=== PATIENT | female | born 1960 | race Caucasian/White ===

== ENCOUNTER → 2016-07-07 | Outpatient (CLI) | payer OTHER ==
[~2016-07-07] MED LIST: ERGO500014 PO; FLEC50TA PO; FLUD1TA PO; HYDR20TA3 PO; [UNRECOGNIZED DRUG - CODE] INJ
--- NOTE | 2016-08-05 01:16 | ECWPNPC ---
PATIENT NAME: VITOR TORRES : 1960 GENDER: FEMALE VISIT DATE: 07/07/2016 DISCHARGE DATE: 07/07/16 1624 VISIT LOCKED DATE TIME: PHYSICIAN: AVELINA ZAMAN RESOURCE: AVELINA ZAMAN REASON FOR APPOINTMENT 1. LOW BACK HISTORY OF PRESENT ILLNESS NEW PATIENT CONSULT: WHEN DID YOUR PAIN FIRST START? . BRIEFLY DESCRIBE HOW YOUR PAIN STARTED? . HOW DOES YOUR PAIN CHANGE WITH TIME? . DOES YOUR PAIN AWAKEN YOU FROM SLEEP? . HOW MANY HOURS OF SLEEP DO YOU NORMALLY GET? . ANY DIAGNOSTIC TESTING? . FACILITY WHERE TESTS WERE DONE? ____. PAIN TREATMENT TREATMENT YES CANCER HAVE YOU EVER HAD ANY TYPE OF CANCER?NO NO. PAIN SCREENING: PATIENT HAS A COMPLAINT OF ACUTE OR CHRONIC PAIN YES FALL RISK SCREENING: SCREENING :NO FALLS IN THE PAST YEAR MUNOZ INVENTORY: QUESTIONNAIRE ASSESSEDTBD SCORE VALUE CALCULATED NO ASSESSMENT NOT COMPLETED. DENIES SUICIDAL IDEATION TODAY'S VISIT: NOTES: ONSET ON LOW BACK PAIN GREATER THAN 2 YEARS AGO. PAIN IS CENTERED IN LOW BACK AND RADIATES TO LEFT BUTTUCK AND INTO LEFT LEG TO AT LEAST THE KNEE AND SOMETIMES TO LEVEL OF THE FOOT. HAS SOME TINGLING IN LEFT FOOT. IS EXPERIENCING WEAKNESS AND CAN NOT STAND FROM FROM A SQUAT. WORSE IN AM. CAN SLEEP BUT PAIN WILL AWAKEN. NO PAIN ON RIGHT. HAS HAD SEVERAL TRIPS AND FALLS - . FELL ON [facility] IN SPRING 2015 WHICH WAS EXCRUTIATING. . CURRENT MEDICATIONS TAKING HYDROCORTISONE 20 MG TABLET 1 TABLET ORALLY TWICE A DAY TAKING FLECAINIDE ACETATE 50 MG TABLET ORALLY TAKING IBUPROFEN 800 MG TABLET 1 TABLET ORALLY THREE TIMES A DAY TAKING VITAMIN D3 2000 UNIT CAPSULE 1 CAPSULE ORALLY ONCE A DAY TAKING DICLOFENAC SODIUM 50 MG TABLET DELAYED RELEASE 1 TABLET WITH FOOD OR MILK ORALLY BID NOT-TAKING VITAMIN D3 HIGH POTENCY 1000 UNIT CAPSULE 1 CAPSULE ORALLY ONCE A DAY MEDICATION LIST REVIEWED AND RECONCILED WITH THE PATIENT PAST MEDICAL HISTORY HYPERTENSION ADDISONS DISEASE VITAMIN D DEFECIENCY COLLAPSED LUNG (LEFT) EMPHYSEMA ALLERGIES PENICILLIN (FOR ALLERGIES USE ONLY): ANAPHYLAXIS SURGICAL HISTORY LEFT OVARY REMOVED HYSTERECTOMY FAMILY HISTORY FATHER: 70 YRS MOTHER: ALIVE SIBLINGS: ALIVE SON(S): ALIVE DAUGHTER(S): ALIVE SOCIAL HISTORY GENERAL: TOBACCO USE ARE YOU A:NONSMOKER RECREATIONAL DRUG USE DRUG USE?NO CAFFEINE CAFFEINE USE?YES CUPS A DAY OCCUPATION: [employer]. DIET: REGULAR. EXERCISE: NO REGULAR EXERCISE, WALKS. MARITAL STATUS: BEEN SEPERATED FOR YEARS. LANGUAGE: BELARUSIAN. EDUCATION: HIGH SCHOOL AND SOME COLLEGE. PSYCHOLOGICAL HX TREATMENTNO PAIN CLINIC PFS, CLERGY, PUBLIC HEALTH REFERRALS CLERGY REFERRAL NEEDED?NO WAS THE PROVIDER NOTIFIED OF ANY PERTINENT INFO?NO PFS REFERRAL NEEDED?NO PUBLIC HEALTH REFERRAL NEEDED?NO PATIENT: ____. ADVANCED DIRECTIVES HEALTH CARE PROXY?NO POWER OF PREMIUM NOTE INTEREST CALCULATOR CLERK?NO HOSPITALIZATION/MAJOR DIAGNOSTIC PROCEDURE NO HOSPITALIZATION HISTORY. REVIEW OF SYSTEMS CONSTITUTIONAL: ANY CHANGE IN YOUR MEDICAL CONDITION? NO . CHILLS NO . FEVER NO . INFECTION: DO YOU HAVE NEW INFECTIONS? NO . DO YOU HAVE HISTORY OF MRSA? NO . MUSCULOSKELETAL: ANY NEW PATTERNS OF PAIN OR NUMBNESS? NO . SYTEMIC LUPUS NO . GASTROENTEROLOGY: ANY NEW CHANGE IN BOWEL CONTROL? NO . BARRETTS ESOPHAGUS NO . CIRRHOSIS NO . HEPATITIS NO . LIVER FAILURE NO . ACID REFLUX NO . UNEXPLAINED WEIGHT LOSS NO . GENITOURINARY: ANY NEW CHANGE IN BLADDER CONTROL? NO . IS THERE A CHANCE YOU COULD BE ? NO . HEMATOLOGY/LYMPH: DO YOU TAKE ANY BLOOD THINNERS? (FOR EXAMPLE- COUMADIN, PLAVIX, AGGRENOX, PLATEL, PRADAXA, OR XARELTO) NO . WHEN WAS YOUR LAST DOSE? DATE: TIME: . LOW PLATELET COUNT NO . SICKLE CELL DISEASE NO . VON WILLIEBRANDS NO . FACTOR V LEIDEN NO . THALLASEMIA NO . ANEMIA NO . EASY BRUISING NO . NEUROLOGY: HAVE YOU FALLEN IN THE PAST 6 MONTHS? YES . ANY NEW EXTREMITY NUMBNESS OR WEAKNESS? NO . HEAD INJURY NO . DEMENTIA NO . CEREBRAL PALSY NO . MULTIPLE SCLEROSIS NO . DIZZINESS NO . HEADACHE NO . STROKES NO . VERTIGO NO . CARDIOLOGY: DO YOU HAVE A PACEMAKER OR DEFIBRILLATOR? NO . ANGINA NO . HEART ATTACK NO . HEART SURGERY NO . CONGESTIVE HEART FAILURE/FLUID OVERLOAD NO . CHEST PAIN NO . HIGH BLOOD PRESSURE NO . IRREGULAR HEART BEAT NO . PALPITATIONS ONSET OF RAPID HEART BEAT 08/27 - HAD EP STUDIES AND EVAL - STARTED ON MEDS WITH IMPROVING. BP IS NOW USUALLY LOW . RESPIRATORY: HAVE YOU BEEN SICK IN THE PAST WEEK? NO . FEVER NO . FLU LIKE SYMPTOMS? NO . CPAP NO . BYPAP NO . ASTHMA NO . EMPHYSEMA NO . CHRONIC LUNG DISEASES EARLY ONSET OF EMPHYSEMA SX RESOLVED WITH STEROIDS . SHORTNESS OF BREATH ON EXERTION NO . DO YOU USE ANY TYPE OF TOBACCO (SMOKE, SMOKELESS, CHEW)? NO . COUGH NO . SNORING NO . INTEGUMENTARY: DO YOU HAVE ANY RASHES OR OPEN SORES? NO . ALLERGIC/IMMUNO: ARE YOU ALLERGIC TO SHELLFISH OR IV DYE? NO . ANY NEW ALLERGIES? NO . PSYCHIATRIC: DO YOU HAVE THOUGHTS OF HURTING YOURSELF OR SOMEONE ELSE? NO . ARE YOU ABUSED, NEGLECTED, OR IN AN UNSAFE ENVIRONMENT? NO . ENDOCRINOLOGY: ARE YOU DIABETIC? NO . PATIENT COMPLAINING OF ADDISONS DISEASE - IMPROVED WITH MEDS. . THYROID DISORDER NO . OTHER: DO YOU NEED ANY PRESCRIPTIONS? NO . IF YES, PLEASE LIST: ____ . ANY NEW PROBLEMS WITH YOUR MEDICATIONS? NO . WHEN DID YOU LAST EAT? ____ . WHEN DID YOU LAST DRINK? ____ . WHAT DID YOU LAST DRINK? ____ . NAME OF PERSON DRIVING YOU HOME? ____ . DO YOU HAVE ANY OTHER QUESTIONS OR CONCERNS NO . REVIEWED BY: PROVIDER: AVELINA SINGH . VITAL SIGNS WT 150 LBS, HT 69 IN, BMI 22.15 INDEX, BP 131/90 MM HG, HR 76 /MIN, RR 16 /MIN, TEMP 97.4 F, OXYGEN SAT % 97%, SAFE IN ENV? (Y/N) Y, NA INITIALS DE 15:01, REVIEWED BY: KG. EXAMINATION GENERAL EXAMINATION: PSYCHALERT , ORIENTED X 3 , APPROPRIATE MOOD AND AFFECT . HEENT:NORMOCEPHALIC, NO LYMPHADENOPATHY, NO THYROMEGLY. LUNGS:CLEAR TO AUSCULTATION BILATERALLY, NO WHEEZES, RALES, OR RHONCHI. HEART:NORMAL S1S2, NO MURMURS, CLICK OR RUBS. ABDOMEN:SOFT, NON-TENDER/NON-DISTENDED, BOWEL SOUNDS PRESENT. MUSCULOSKELETAL:MUSCLE STRENGTH TESTING : 4+/5 LEFT LOWER EXTREMITY, 5/5 RIGHT LOWER EXTREMITY BOTH DISTALLY AND PROXIMALLY. PAIN WITH PALPATION IN LEFT SACRAL ILIAC JOINT AND LEFT TROCANTER AND SACRUM. POINT TENDERNESS OVER LUMBAR SPINOUS PROCESSES. POSITIVE TRE SIGN LEFT LEG. SLOW TO RISE TO STANDING POSITION, POSTURE UPRIGHT. GAIT SLOW AND ANTALGIC.. NEUROLOGIC EXAM:DECREASED SENSATION LEFT HIP, LEFT MEDIAL CALF AND FOOT. DTR'S 1+ BILATERAL LOWER EXTREMITIES. . 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 WITHOUT [id number] M 07/07/2016 4:15:41 PM > LOW BACK PAIN LEFT LEG WEAKNESS NOTES: CONTINUE DICLOFENAC, CONTINUE HEAT/ICE. PROCEDURE CODES FA211 ESTABILISHED PATIENT [facility] CHARGE DISPOSITION & COMMUNICATION FOLLOW UP 1 MONTH (REASON: CHECK AUTH FOR MRI LUMBAR SPINE) ELECTRONICALLY SIGNED BY HONG MASTERS ON 08/04/2016 AT 05:22 PM EST DISCLAIMER : THIS IS A VISIT SUMMARY EXTRACTED FROM THE [employer] CHART. IT IS NOT A COPY OF THE [employer] PROGRESS NOTE. BROCK
== END ==
LOC: M PAIN 15:20
PROVIDERS: ATTEND Nurse Practitioner Family
DX: M51.16 Intervertebral disc disorders with radiculopathy, lumbar region (principal); M51.36 Other intervertebral disc degeneration, lumbar region; G89.29 Other chronic pain; M54.5 Low back pain; Z79.899 Other long term (current) drug therapy; I10 Essential (primary) hypertension; E27.1 Primary adrenocortical insufficiency; E55.9 Vitamin D deficiency, unspecified

== ENCOUNTER → 2017-06-11 | Outpatient (CLI) | payer OTHER | LOC: M WUC 09:02 | DX: M51.36 Other intervertebral disc degeneration, lumbar region (principal) | CPT/HCPCS: 72110 ==

== ENCOUNTER 2017-07-14 08:20 | Emergency (ER) | payer OTHER ==
[2017-07-14] MEDS: ASPIRIN 81 MG CHEW TABLET PO (08:49)
[2017-07-14 08:57] LABS: BASO % 0.4 % (0.0-1.0); EOS # 0.1 10^3/uL (0.0-0.50); EOS % 0.7 % (0.0-3.0); HEMATOCRIT 43.8 % (36.0-47.0); HEMOGLOBIN 14.9 g/dl (12.0-16.0); IMMATURE GRANULOCYTE % 0.3 % (0-0); LYMPH # 1.2 10^3/uL (1.5-4.5); LYMPH % 15.7 % (24.0-44.0); MEAN CORPUSCULAR HEMOGLOBIN 30.7 pg (27.0-33.0); MEAN CORPUSCULAR VOLUME 90.3 fl (80.0-96.0); MONO # 0.5 10^3/uL (0.0-0.8); MONO % 6.1 % (0.0-5.0); NEUTROPHILS # 5.8 10^3/uL (1.8-7.7); NEUTROPHILS % 76.8 % (36.0-66.0); PLATELET COUNT, AUTOMATED 298 10^3/uL (150-450); RED BLOOD COUNT 4.85 10^6/uL (4.00-5.40); RED CELL DISTRIBUTION WIDTH 11.9 % (11.5-14.5); WHITE BLOOD COUNT 7.6 10^3/uL (4.0-10.0)
[2017-07-14 09:11] LABS: INR 0.89; PROTHROMBIN TIME 12.1 SECONDS (12.4-14.5)
[2017-07-14 09:25] LABS: ALBUMIN 4.4 GM/DL (3.2-5.2); ALBUMIN/GLOBULIN RATIO 1.16 (1.00-1.93); ALKALINE PHOSPHATASE 103 U/L (45-117); ALT/SGPT 24 U/L (12-78); ANION GAP 5 MEQ/L (8-16); AST/SGOT 29 U/L (7-37); BILIRUBIN,DIRECT 0.2 MG/DL (0.0-0.2); BILIRUBIN,TOTAL 0.7 MG/DL (0.2-1.0); BLOOD UREA NITROGEN 10 MG/DL (7-18); CALCIUM LEVEL 9.3 MG/DL (8.5-10.1); CARBON DIOXIDE LEVEL 32 MEQ/L (21-32); CHLORIDE LEVEL 99 MEQ/L (98-107); CPK CREATINE PHOSPHOKINASE 149 U/L (26-192); CREATININE FOR GFR 0.91 MG/DL (0.55-1.30); GLOMERULAR FILTRATION RATE > 60.0 (>51); GLUCOSE, FASTING 109 MG/DL (70-100); MB/CK RELATIVE INDEX 2.01 (< OR =4); POTASSIUM SERUM 4.7 MEQ/L (3.5-5.1); SODIUM LEVEL 136 MEQ/L (136-145); TOTAL PROTEIN 8.2 GM/DL (6.4-8.2); TROPONIN I < 0.02 NG/ML (< 0.10)
[2017-07-14 09:27] LABS: NT-PRO BNP 263 PG/ML (<125)
[2017-07-14] MEDS ORDERED: ISOVUE-370 76% 100ML VIAL (Q9967) As Ordered (09:32)
[2017-07-14 15:29] LABS: CPK CREATINE PHOSPHOKINASE 98 U/L (26-192); MB/CK RELATIVE INDEX 2.04 (< OR =4); TROPONIN I < 0.02 NG/ML (< 0.10)
== END 2017-07-14 15:45 | disposition home or self-care (01) ==
LOC: M ED 08:20
DX: R07.9 Chest pain, unspecified (principal); I45.10 Unspecified right bundle-branch block; R00.9 Unspecified abnormalities of heart beat; Z87.891 Personal history of nicotine dependence; Z82.49 Family history of ischemic heart disease and other diseases of the circulatory system; Z79.899 Other long term (current) drug therapy; Z88.0 Allergy status to penicillin; Z88.5 Allergy status to narcotic agent
CPT/HCPCS: Q9967

== ENCOUNTER → 2017-08-13 | Outpatient (CLI) | payer OTHER | LOC: M WUC 16:48 | DX: S60.212A Contusion of left wrist, initial encounter (principal); X58.XXXA Exposure to other specified factors, initial encounter; Y92.9 Unspecified place or not applicable | CPT/HCPCS: 73110 ==

== ENCOUNTER → 2017-08-19 | Outpatient (REF) | payer OTHER | LOC: M LAB REF 13:41 | DX: Z12.4 Encounter for screening for malignant neoplasm of cervix (principal) | CPT/HCPCS: 88142 ==

== ENCOUNTER 2017-12-26 12:25 | Inpatient (IN) | payer OTHER ==
[2017-12-26 12:54] LABS: BASO % 0.2 % (0.0-1.0); HEMATOCRIT 41.6 % (36.0-47.0); IMMATURE GRANULOCYTE % 0.2 % (0-3.0); LYMPH # 0.9 10^3/uL (1.5-4.5); LYMPH % 9.9 % (24.0-44.0); MEAN CORPUSCULAR HGB CONC 33.7 g/dl (32.0-36.5); MEAN CORPUSCULAR VOLUME 92.2 fl (80.0-96.0); MONO # 0.5 10^3/uL (0.0-0.8); MONO % 5.7 % (0.0-5.0); NEUTROPHILS # 7.4 10^3/uL (1.8-7.7); PLATELET COUNT, AUTOMATED 265 10^3/uL (150-450); RED BLOOD COUNT 4.51 10^6/uL (4.00-5.40); RED CELL DISTRIBUTION WIDTH 11.9 % (11.5-14.5); WHITE BLOOD COUNT 8.8 10^3/uL (4.0-10.0)
[2017-12-26 13:14] LABS: INR 0.93; PROTHROMBIN TIME 12.5 SECONDS (12.1-14.4)
[2017-12-26 13:15] LABS: PARTIAL THROMBOPLASTIN TIME 27.2 SECONDS (25.4-37.6)
[2017-12-26 13:16] LABS: ANION GAP 9 MEQ/L (8-16); BLOOD UREA NITROGEN 12 MG/DL (7-18); CALCIUM LEVEL 8.9 MG/DL (8.5-10.1); CARBON DIOXIDE LEVEL 28 MEQ/L (21-32); CHLORIDE LEVEL 98 MEQ/L (98-107); CPK CREATINE PHOSPHOKINASE 323 U/L (26-192); CREATININE FOR GFR 0.92 MG/DL (0.55-1.30); GLOMERULAR FILTRATION RATE > 60.0 (>51); GLUCOSE, FASTING 89 MG/DL (70-100); SODIUM LEVEL 135 MEQ/L (136-145); TROPONIN I < 0.02 NG/ML (< 0.10)
[2017-12-26 13:17] LABS: CK-MB VALUE MASS 2.3 NG/ML (<3.6); MB/CK RELATIVE INDEX 0.71 (< OR =4); NT-PRO BNP 204 PG/ML (<125)
[2017-12-26] MEDS ORDERED: ONDANSETRON 4MG/2ML VIAL (J2405) IV (13:30)
[2017-12-26] MEDS ORDERED: NORCO, ANEXSIA 5/325MG TABLET (HYDROcodone/ACETAMINOPHEN) PO (13:30)
[2017-12-26] MEDS ORDERED: BISACODYL 10 MG SUPP PR (13:30)
[2017-12-26] MEDS ORDERED: MIDAZOLAM INJ 2 MG/2 ML VIAL (J2250) As Ordered ×3 (13:53→13:54)
[2017-12-26] MEDS ORDERED: FLUMAZENIL 0.5 MG/5 ML VIAL As Ordered (13:55)
[2017-12-26] MEDS ORDERED: LIDOCAINE 1% MDV 20ML VIAL As Ordered (13:55)
[2017-12-26] MEDS: LEVALBUTEROL 1.25 MG/0.5 ML CONCENTRATE NEB NEB ×2 (14:00→19:52)
[2017-12-26] MEDS ORDERED: methylPREDNISolone INJ 40 MG/1 ML VIAL (J2920) As Ordered (14:05)
[2017-12-26] MEDS: methylPREDNISolone INJ 40 MG/1 ML VIAL (J2920) IV (14:08)
[2017-12-26] MEDS: MIDAZOLAM INJ 2 MG/2 ML VIAL (J2250) IV ×2 (14:11→14:15)
[2017-12-26] MEDS: LIDOCAINE 1% MDV 20ML VIAL SC ×2 (14:16→17:00)
[2017-12-26] MEDS ORDERED: KETOROLAC 30 MG/ML VIAL (J1885) IV (14:28)
[2017-12-26] MEDS: KETOROLAC 30 MG/ML VIAL (J1885) IV ×2 (14:28→21:23)
[2017-12-26] MEDS ORDERED: GLUCOSE 4 GM CHEW TABLET PO (14:45)
[2017-12-26] MEDS ORDERED: DEXTROSE 50% 50 ML SYRINGE IV (14:45)
[2017-12-26] MEDS ORDERED: GLUCAGON FOR INJ 1 MG VIAL (J1610) SC (14:45)
[2017-12-26] MEDS: KCL 20MEQ IN D5/NS 1000ML 1,000 ML IV (15:10)
[2017-12-26] MEDS: methylPREDNISolone INJ 125 MG/2 ML VIAL (J2930) IV (15:10)
[2017-12-26] MEDS: MOM 30ML SUSPENSION UDC PO (16:30)
[2017-12-26] MEDS: DOCUSATE SODIUM 100 MG CAP PO ×2 (16:30→21:24)
[2017-12-26] MEDS: HumaLOG INSULIN (NovoLOG) PER UNIT SC ×2 (17:30→21:00)
[2017-12-26 17:40] LABS: BEDSIDE GLUCOSE 134 MG/DL (70-105)
[2017-12-26] MEDS: THIAMINE 100 MG TAB PO (17:53)
[2017-12-26] MEDS: PANTOPRAZOLE 40MG TAB (PROTONIX) PO (17:54)
[2017-12-26] MEDS: FOLIC ACID 1 MG TAB PO (17:54)
[2017-12-26] MEDS: MULTIVITAMINS/MINERALS THERAP 1 TAB PO (17:54)
[2017-12-26] MEDS: PERCOCET 5MG/325MG TAB PO (17:55)
[2017-12-26] MEDS ORDERED: HYDROCORTISONE 10 MG TAB PO (21:00)
[2017-12-26 21:04] LABS: BEDSIDE GLUCOSE 243 MG/DL (70-105)
[2017-12-26] MEDS: FLECAINIDE 50MG TABLET PO (21:23)
[2017-12-26] MEDS: HEPARIN SOD (PORCINE) 5000 UNITS/ML VIAL SC (21:24)
[2017-12-27] MEDS: PERCOCET 5MG/325MG TAB PO ×3 (00:10→23:49)
[2017-12-27] MEDS: HYDROCORTISONE 100 MG/2 ML VIAL (J1720) IV ×4 (00:10→23:48)
[2017-12-27] MEDS: LEVALBUTEROL 1.25 MG/0.5 ML CONCENTRATE NEB NEB ×5 (00:47→21:06)
[2017-12-27] MEDS: KETOROLAC 30 MG/ML VIAL (J1885) IV ×4 (02:57→20:06)
[2017-12-27] MEDS: KCL 20MEQ IN D5/NS 1000ML 1,000 ML IV (04:39)
[2017-12-27 05:54] LABS: HEMATOCRIT 36.2 % (36.0-47.0); HEMOGLOBIN 12.4 g/dl (12.0-15.5); IMMATURE GRANULOCYTE % 0.4 % (0-3.0); LYMPH # 0.4 10^3/uL (1.5-4.5); MEAN CORPUSCULAR HEMOGLOBIN 31.3 pg (27.0-33.0); MEAN CORPUSCULAR HGB CONC 34.3 g/dl (32.0-36.5); MEAN CORPUSCULAR VOLUME 91.4 fl (80.0-96.0); MONO # 0.6 10^3/uL (0.0-0.8); MONO % 7.1 % (0.0-5.0); NEUTROPHILS # 7.5 10^3/uL (1.8-7.7); NEUTROPHILS % 87.5 % (36.0-66.0); PLATELET COUNT, AUTOMATED 221 10^3/uL (150-450); RED BLOOD COUNT 3.96 10^6/uL (4.00-5.40); RED CELL DISTRIBUTION WIDTH 11.7 % (11.5-14.5); WHITE BLOOD COUNT 8.5 10^3/uL (4.0-10.0)
[2017-12-27 05:59] LABS: ABG BASE EXCESS -0.3 (-2.0-2.0); ABG HCO3 24.1 MEQ/L (22.0-26.0); ABG O2 SATURATION 98.7 % (95.0-99.0); ABG PARTIAL PRESSURE CO2 38.7 mmHg (35.0-45.0); ABG PARTIAL PRESSURE O2 130.1 mmHg (75.0-100.0); ABG STANDARD HCO3 24.3 MEQ/L (22.0-26.0); ABG TOTAL CO2 25.3 MEQ/L (22.0-29.0); ABG pH (ARTERIAL) 7.413 UNITS (7.350-7.450)
[2017-12-27 06:15] LABS: ANION GAP 6 MEQ/L (8-16); BLOOD UREA NITROGEN 11 MG/DL (7-18); CALCIUM LEVEL 8.2 MG/DL (8.5-10.1); CARBON DIOXIDE LEVEL 28 MEQ/L (21-32); CHLORIDE LEVEL 99 MEQ/L (98-107); CREATININE FOR GFR 0.73 MG/DL (0.55-1.30); GLOMERULAR FILTRATION RATE > 60.0 (>51); GLUCOSE, FASTING 210 MG/DL (70-100); POTASSIUM SERUM 4.3 MEQ/L (3.5-5.1); SODIUM LEVEL 133 MEQ/L (136-145)
[2017-12-27] MEDS: HumaLOG INSULIN (NovoLOG) PER UNIT SC ×4 (07:30→20:08)
[2017-12-27] MEDS ORDERED: ISOVUE-370 76% 100ML VIAL (Q9967) As Ordered (07:50)
[2017-12-27] MEDS ORDERED: HYDROCORTISONE 10 MG TAB PO (09:00)
[2017-12-27] MEDS: MULTIVITAMINS/MINERALS THERAP 1 TAB PO (10:12)
[2017-12-27] MEDS: MOM 30ML SUSPENSION UDC PO (10:12)
[2017-12-27] MEDS: THIAMINE 100 MG TAB PO (10:13)
[2017-12-27] MEDS: FOLIC ACID 1 MG TAB PO (10:13)
[2017-12-27] MEDS: DOCUSATE SODIUM 100 MG CAP PO ×2 (10:14→20:05)
[2017-12-27] MEDS: PANTOPRAZOLE 40MG TAB (PROTONIX) PO (10:14)
[2017-12-27] MEDS: FLECAINIDE 50MG TABLET PO ×2 (10:14→20:05)
[2017-12-27] MEDS: HEPARIN SOD (PORCINE) 5000 UNITS/ML VIAL SC ×2 (10:14→20:05)
[2017-12-27 11:49] LABS: BEDSIDE GLUCOSE 166 MG/DL (70-105)
[2017-12-27] MEDS ORDERED: SLF 3 ML SYR IV (14:15)
[2017-12-27 17:00] LABS: BEDSIDE GLUCOSE 112 MG/DL (70-105)
[2017-12-27 20:10] LABS: BEDSIDE GLUCOSE 218 MG/DL (70-105)
[2017-12-27] MEDS: SLF 3 ML SYR IV (21:06)
[2017-12-28] MEDS: LEVALBUTEROL 1.25 MG/0.5 ML CONCENTRATE NEB NEB ×4 (01:01→20:10)
[2017-12-28] MEDS: KETOROLAC 30 MG/ML VIAL (J1885) IV ×4 (02:20→21:06)
[2017-12-28] MEDS: PERCOCET 5MG/325MG TAB PO (04:21)
[2017-12-28] MEDS: SLF 3 ML SYR IV ×3 (06:00→21:07)
[2017-12-28 06:09] LABS: BASO % 0.1 % (0.0-1.0); HEMATOCRIT 37.5 % (36.0-47.0); HEMOGLOBIN 12.6 g/dl (12.0-15.5); IMMATURE GRANULOCYTE % 0.6 % (0-3.0); LYMPH % 7.4 % (24.0-44.0); MEAN CORPUSCULAR HEMOGLOBIN 31.7 pg (27.0-33.0); MEAN CORPUSCULAR HGB CONC 33.6 g/dl (32.0-36.5); MEAN CORPUSCULAR VOLUME 94.5 fl (80.0-96.0); MONO # 0.7 10^3/uL (0.0-0.8); MONO % 4.9 % (0.0-5.0); NEUTROPHILS # 12.1 10^3/uL (1.8-7.7); PLATELET COUNT, AUTOMATED 230 10^3/uL (150-450); RED BLOOD COUNT 3.97 10^6/uL (4.00-5.40); RED CELL DISTRIBUTION WIDTH 12.1 % (11.5-14.5); WHITE BLOOD COUNT 13.8 10^3/uL (4.0-10.0)
[2017-12-28] MEDS: HYDROCORTISONE 100 MG/2 ML VIAL (J1720) IV ×3 (06:19→23:32)
[2017-12-28] MEDS: D5W/0.9% SODIUM CHLORIDE 1,000 ML IV (06:19)
[2017-12-28 06:27] LABS: ANION GAP 6 MEQ/L (8-16); BLOOD UREA NITROGEN 9 MG/DL (7-18); CALCIUM LEVEL 8.7 MG/DL (8.5-10.1); CARBON DIOXIDE LEVEL 32 MEQ/L (21-32); CHLORIDE LEVEL 99 MEQ/L (98-107); CREATININE FOR GFR 0.78 MG/DL (0.55-1.30); GLOMERULAR FILTRATION RATE > 60.0 (>51); GLUCOSE, FASTING 118 MG/DL (70-100); POTASSIUM SERUM 4.2 MEQ/L (3.5-5.1); SODIUM LEVEL 137 MEQ/L (136-145)
[2017-12-28] MEDS: HumaLOG INSULIN (NovoLOG) PER UNIT SC ×4 (07:14→21:07)
[2017-12-28] MEDS: HEPARIN SOD (PORCINE) 5000 UNITS/ML VIAL SC ×2 (07:55→21:06)
[2017-12-28] MEDS: MOM 30ML SUSPENSION UDC PO (07:56)
[2017-12-28] MEDS: FLECAINIDE 50MG TABLET PO ×2 (07:58→21:06)
[2017-12-28] MEDS: DOCUSATE SODIUM 100 MG CAP PO ×2 (07:58→21:06)
[2017-12-28] MEDS: MULTIVITAMINS/MINERALS THERAP 1 TAB PO (07:58)
[2017-12-28] MEDS: FOLIC ACID 1 MG TAB PO (07:58)
[2017-12-28] MEDS: THIAMINE 100 MG TAB PO (07:58)
[2017-12-28] MEDS: PANTOPRAZOLE 40MG TAB (PROTONIX) PO (07:58)
[2017-12-28] MEDS: VANCOMYCIN HCL 1,000 MG, VIAL MATE ADAPTER 1 EACH in D5W 250 ML IV (11:22)
[2017-12-28] MEDS ORDERED: ROCURONIUM BROMIDE 50 MG/5 ML VIAL As Ordered (11:29)
[2017-12-28] MEDS ORDERED: fentaNYL 250 MCG/5 ML INJECTION (J3010) As Ordered (11:29)
[2017-12-28] MEDS ORDERED: LIDOCAINE 2% INJ 100 MG/5 ML SDV (FOR ANES.) As Ordered (11:29)
[2017-12-28] MEDS ORDERED: PROPOFOL 200 MG/20 ML VIAL As Ordered (11:29)
[2017-12-28] MEDS ORDERED: MIDAZOLAM INJ 2 MG/2 ML VIAL (J2250) As Ordered ×2 (11:30→11:41)
[2017-12-28] MEDS ORDERED: fentaNYL 100 MCG/2 ML INJECTION (J3010) As Ordered (11:41)
[2017-12-28] MEDS: MIDAZOLAM INJ 2 MG/2 ML VIAL (J2250) IV ×2 (12:04→12:08)
[2017-12-28] MEDS: fentaNYL 100 MCG/2 ML INJECTION (J3010) IV (12:04)
[2017-12-28] MEDS ORDERED: MUPIROCIN 2% OINT 22 GM TUBE As Ordered (12:24)
[2017-12-28] MEDS ORDERED: WALLBOXKEY XX (12:30)
[2017-12-28] MEDS ORDERED: METOCLOPRAMIDE INJ 10MG/2ML VIAL (J2765) IV ×2 (12:30→15:30)
[2017-12-28] MEDS: FENTANYL/BUPIVACAINE/NACL BAG 250 ML EPIDURAL ×2 (12:30→15:08)
[2017-12-28] MEDS ORDERED: EPIDURAL/PCA KEYS XX (12:30)
[2017-12-28] MEDS ORDERED: NALOXONE INJ 0.4 MG/1 ML VIAL (J2310) IV (12:30)
[2017-12-28] MEDS ORDERED: diphenhydrAMINE INJ 50MG/ML VIAL (J1200) IV (12:30)
[2017-12-28] MEDS: MUPIROCIN 2% OINT 22 GM TUBE TOP (12:48)
[2017-12-28] MEDS ORDERED: HYDROCORTISONE 100 MG/2 ML VIAL (J1720) As Ordered (12:51)
[2017-12-28] MEDS: CETACAINE SPRAY 5GM As Ordered (12:52)
[2017-12-28] MEDS ORDERED: ePHEDrine SULFATE 25 MG/5 ML(5MG/ML) SYRINGE As Ordered (13:12)
[2017-12-28] MEDS ORDERED: METOCLOPRAMIDE INJ 10MG/2ML VIAL (J2765) As Ordered (13:57)
[2017-12-28] MEDS ORDERED: dexameTHASONE 4 MG/ML 1ML VIAL (J1100) As Ordered ×2 (13:57)
[2017-12-28] MEDS ORDERED: KETOROLAC 60 MG/2 ML VIAL (J1885) As Ordered (13:57)
[2017-12-28] MEDS ORDERED: ONDANSETRON 4MG/2ML VIAL (J2405) As Ordered ×2 (13:57)
[2017-12-28] MEDS ORDERED: NEOSTIGMINE 10 MG/10 ML VIAL (J2710) As Ordered (13:58)
[2017-12-28] MEDS ORDERED: GLYCOPYRROLATE INJ 0.2 MG/ML 2 ML VIAL As Ordered (13:58)
[2017-12-28] MEDS ORDERED: BUPIVACAINE HCL 0.25% 30 ML VIAL As Ordered (14:02)
[2017-12-28] MEDS: STERILE TALC POWDER 3GM VIAL As Ordered (14:12)
[2017-12-28] MEDS: TALCAIR POWDER BLOWER (CAN ONLY BE USED WITH 3GM TALC VIAL) XX (14:13)
[2017-12-28] MEDS: BUPIVACAINE HCL 0.5% 10 ML VIAL As Ordered (14:38)
[2017-12-28] MEDS: BUPIVACAINE LIPOSOME/PF 1.3% 20 ML VIAL (13.3MG/ML)(EXPAREL) As Ordered (14:38)
[2017-12-28] MEDS ORDERED: FENTANYL 2MCG/ML BUPIVACAINE 0.0625% NACL 250ML IV BAG As Ordered (14:42)
[2017-12-28] MEDS: KCL 20MEQ IN D5/NS 1000ML 1,000 ML IV (14:50)
[2017-12-28] MEDS ORDERED: KCL 20MEQ IN D5/0.9%NACL 1000 ML As Ordered (15:10)
[2017-12-28 15:16] LABS: HEMATOCRIT 37.5 % (36.0-47.0); HEMOGLOBIN 12.3 g/dl (12.0-15.5); IMMATURE GRANULOCYTE % 0.5 % (0-3.0); LYMPH # 0.6 10^3/uL (1.5-4.5); LYMPH % 6.6 % (24.0-44.0); MEAN CORPUSCULAR HEMOGLOBIN 31.5 pg (27.0-33.0); MEAN CORPUSCULAR HGB CONC 32.8 g/dl (32.0-36.5); MEAN CORPUSCULAR VOLUME 95.9 fl (80.0-96.0); MONO # 0.5 10^3/uL (0.0-0.8); MONO % 5.6 % (0.0-5.0); NEUTROPHILS # 8.2 10^3/uL (1.8-7.7); NEUTROPHILS % 87.3 % (36.0-66.0); PLATELET COUNT, AUTOMATED 208 10^3/uL (150-450); RED BLOOD COUNT 3.91 10^6/uL (4.00-5.40); RED CELL DISTRIBUTION WIDTH 12.3 % (11.5-14.5); WHITE BLOOD COUNT 9.4 10^3/uL (4.0-10.0)
[2017-12-28 15:28] LABS: ABG BASE EXCESS 0.9 (-2.0-2.0); ABG HCO3 25.1 MEQ/L (22.0-26.0); ABG O2 SATURATION 99.3 % (95.0-99.0); ABG PARTIAL PRESSURE CO2 38.7 mmHg (35.0-45.0); ABG PARTIAL PRESSURE O2 145.7 mmHg (75.0-100.0); ABG STANDARD HCO3 25.3 MEQ/L (22.0-26.0); ABG TOTAL CO2 26.3 MEQ/L (22.0-29.0)
[2017-12-28] MEDS: LR 1,000 ML IV (15:30)
[2017-12-28] MEDS ORDERED: ONDANSETRON 4MG/2ML VIAL (J2405) IV (15:30)
[2017-12-28] MEDS ORDERED: PERCOCET 5MG/325MG TAB PO (15:30)
[2017-12-28] MEDS ORDERED: MEPERIDINE INJ 25 MG/ML VIAL (J2175) IV (15:30)
[2017-12-28] MEDS ORDERED: fentaNYL 100 MCG/2 ML INJECTION (J3010) IV (15:30)
[2017-12-28 15:37] LABS: ANION GAP 4 MEQ/L (8-16); BLOOD UREA NITROGEN 9 MG/DL (7-18); CALCIUM LEVEL 8.1 MG/DL (8.5-10.1); CARBON DIOXIDE LEVEL 32 MEQ/L (21-32); CHLORIDE LEVEL 102 MEQ/L (98-107); CREATININE FOR GFR 0.82 MG/DL (0.55-1.30); GLOMERULAR FILTRATION RATE > 60.0 (>51); GLUCOSE, FASTING 173 MG/DL (70-100); POTASSIUM SERUM 3.8 MEQ/L (3.5-5.1); SODIUM LEVEL 138 MEQ/L (136-145)
[2017-12-28 18:06] LABS: BEDSIDE GLUCOSE 264 MG/DL (70-105)
[2017-12-28 20:21] LABS: BEDSIDE GLUCOSE 352 MG/DL (70-105)
[2017-12-29] MEDS: KETOROLAC 30 MG/ML VIAL (J1885) IV ×4 (01:58→20:35)
[2017-12-29] MEDS: LEVALBUTEROL 1.25 MG/0.5 ML CONCENTRATE NEB NEB ×4 (02:27→19:46)
[2017-12-29 06:04] LABS: BASO % 0.1 % (0.0-1.0); HEMATOCRIT 34.7 % (36.0-47.0); HEMOGLOBIN 11.6 g/dl (12.0-15.5); IMMATURE GRANULOCYTE % 0.4 % (0-3.0); LYMPH % 7.1 % (24.0-44.0); MEAN CORPUSCULAR HEMOGLOBIN 31.5 pg (27.0-33.0); MEAN CORPUSCULAR HGB CONC 33.4 g/dl (32.0-36.5); MEAN CORPUSCULAR VOLUME 94.3 fl (80.0-96.0); MONO # 1.1 10^3/uL (0.0-0.8); MONO % 7.8 % (0.0-5.0); NEUTROPHILS # 11.4 10^3/uL (1.8-7.7); NEUTROPHILS % 84.6 % (36.0-66.0); PLATELET COUNT, AUTOMATED 214 10^3/uL (150-450); RED BLOOD COUNT 3.68 10^6/uL (4.00-5.40); RED CELL DISTRIBUTION WIDTH 12.2 % (11.5-14.5); WHITE BLOOD COUNT 13.5 10^3/uL (4.0-10.0)
[2017-12-29 06:08] LABS: ABG BASE EXCESS 1.7 (-2.0-2.0); ABG HCO3 25.5 MEQ/L (22.0-26.0); ABG O2 SATURATION 97.2 % (95.0-99.0); ABG PARTIAL PRESSURE CO2 37.3 mmHg (35.0-45.0); ABG PARTIAL PRESSURE O2 87.9 mmHg (75.0-100.0); ABG TOTAL CO2 26.7 MEQ/L (22.0-29.0); ABG pH (ARTERIAL) 7.453 UNITS (7.350-7.450)
[2017-12-29] MEDS: HYDROCORTISONE 100 MG/2 ML VIAL (J1720) IV ×3 (06:25→23:52)
[2017-12-29] MEDS: SLF 3 ML SYR IV ×3 (06:26→20:35)
[2017-12-29 06:28] LABS: ANION GAP 7 MEQ/L (8-16); BLOOD UREA NITROGEN 7 MG/DL (7-18); CALCIUM LEVEL 8.3 MG/DL (8.5-10.1); CARBON DIOXIDE LEVEL 30 MEQ/L (21-32); CHLORIDE LEVEL 96 MEQ/L (98-107); CREATININE FOR GFR 0.75 MG/DL (0.55-1.30); GLOMERULAR FILTRATION RATE > 60.0 (>51); GLUCOSE, FASTING 110 MG/DL (70-100); POTASSIUM SERUM 4.1 MEQ/L (3.5-5.1); SODIUM LEVEL 133 MEQ/L (136-145)
[2017-12-29] MEDS: HumaLOG INSULIN (NovoLOG) PER UNIT SC ×4 (08:43→20:24)
[2017-12-29] MEDS: MULTIVITAMINS/MINERALS THERAP 1 TAB PO (09:37)
[2017-12-29] MEDS: MOM 30ML SUSPENSION UDC PO (09:37)
[2017-12-29] MEDS: THIAMINE 100 MG TAB PO (09:37)
[2017-12-29] MEDS: PANTOPRAZOLE 40MG TAB (PROTONIX) PO (09:38)
[2017-12-29] MEDS: DOCUSATE SODIUM 100 MG CAP PO ×2 (09:38→20:34)
[2017-12-29] MEDS: FLECAINIDE 50MG TABLET PO ×2 (09:38→20:34)
[2017-12-29] MEDS: HEPARIN SOD (PORCINE) 5000 UNITS/ML VIAL SC ×2 (09:38→20:34)
[2017-12-29] MEDS: FOLIC ACID 1 MG TAB PO (09:38)
[2017-12-29 11:32] LABS: BEDSIDE GLUCOSE 191 MG/DL (70-105)
[2017-12-29] MEDS: FENTANYL/BUPIVACAINE/NACL BAG 250 ML EPIDURAL (15:07)
[2017-12-29 17:00] LABS: BEDSIDE GLUCOSE 87 MG/DL (70-105)
[2017-12-29 20:25] LABS: BEDSIDE GLUCOSE 143 MG/DL (70-105)
[2017-12-29] MEDS: LORazepam 2 MG/ML VIAL (J2060) IV (23:53)
[2017-12-30] MEDS: LEVALBUTEROL 1.25 MG/0.5 ML CONCENTRATE NEB NEB ×4 (01:23→20:07)
[2017-12-30] MEDS: KETOROLAC 30 MG/ML VIAL (J1885) IV ×4 (02:21→20:48)
[2017-12-30 05:38] LABS: BASO % 0.1 % (0.0-1.0); HEMATOCRIT 33.7 % (36.0-47.0); HEMOGLOBIN 11.1 g/dl (12.0-15.5); IMMATURE GRANULOCYTE % 0.4 % (0-3.0); LYMPH # 0.8 10^3/uL (1.5-4.5); LYMPH % 10.1 % (24.0-44.0); MEAN CORPUSCULAR HEMOGLOBIN 31.3 pg (27.0-33.0); MEAN CORPUSCULAR HGB CONC 32.9 g/dl (32.0-36.5); MEAN CORPUSCULAR VOLUME 94.9 fl (80.0-96.0); MONO # 0.7 10^3/uL (0.0-0.8); MONO % 9.1 % (0.0-5.0); NEUTROPHILS # 6.4 10^3/uL (1.8-7.7); NEUTROPHILS % 80.3 % (36.0-66.0); PLATELET COUNT, AUTOMATED 188 10^3/uL (150-450); RED BLOOD COUNT 3.55 10^6/uL (4.00-5.40); WHITE BLOOD COUNT 7.9 10^3/uL (4.0-10.0)
[2017-12-30 05:53] LABS: ANION GAP 5 MEQ/L (8-16); BLOOD UREA NITROGEN 12 MG/DL (7-18); CALCIUM LEVEL 8.2 MG/DL (8.5-10.1); CARBON DIOXIDE LEVEL 32 MEQ/L (21-32); CHLORIDE LEVEL 100 MEQ/L (98-107); CREATININE FOR GFR 0.81 MG/DL (0.55-1.30); GLOMERULAR FILTRATION RATE > 60.0 (>51); GLUCOSE, FASTING 126 MG/DL (70-100); SODIUM LEVEL 137 MEQ/L (136-145)
[2017-12-30] MEDS: SLF 3 ML SYR IV ×3 (06:38→20:54)
[2017-12-30] MEDS: HYDROCORTISONE 100 MG/2 ML VIAL (J1720) IV ×2 (06:38→14:24)
[2017-12-30] MEDS: HumaLOG INSULIN (NovoLOG) PER UNIT SC ×4 (07:56→20:53)
[2017-12-30] MEDS ORDERED: DOCUSATE SODIUM 100 MG CAP PO (09:00)
[2017-12-30] MEDS: MOM 30ML SUSPENSION UDC PO (09:55)
[2017-12-30] MEDS: FOLIC ACID 1 MG TAB PO (09:56)
[2017-12-30] MEDS: THIAMINE 100 MG TAB PO (09:56)
[2017-12-30] MEDS: HEPARIN SOD (PORCINE) 5000 UNITS/ML VIAL SC ×2 (09:56→20:53)
[2017-12-30] MEDS: DOCUSATE SODIUM 100 MG CAP PO ×2 (09:56→20:48)
[2017-12-30] MEDS: SENOKOT S TAB PO ×2 (09:56→20:54)
[2017-12-30] MEDS: MULTIVITAMINS/MINERALS THERAP 1 TAB PO (09:56)
[2017-12-30] MEDS: PANTOPRAZOLE 40MG TAB (PROTONIX) PO (09:56)
[2017-12-30] MEDS: FLECAINIDE 50MG TABLET PO ×2 (09:59→20:53)
[2017-12-30 11:36] LABS: BEDSIDE GLUCOSE 178 MG/DL (70-105)
[2017-12-30] MEDS: FENTANYL/BUPIVACAINE/NACL BAG 250 ML EPIDURAL (15:11)
[2017-12-30 17:26] LABS: BEDSIDE GLUCOSE 140 MG/DL (70-105)
[2017-12-30 20:56] LABS: BEDSIDE GLUCOSE 123 MG/DL (70-105)
[2017-12-31] MEDS: HYDROCORTISONE 100 MG/2 ML VIAL (J1720) IV ×4 (00:02→23:58)
[2017-12-31] MEDS: LEVALBUTEROL 1.25 MG/0.5 ML CONCENTRATE NEB NEB ×4 (01:24→19:37)
[2017-12-31] MEDS: LORazepam 2 MG/ML VIAL (J2060) IV (02:27)
[2017-12-31] MEDS: KETOROLAC 30 MG/ML VIAL (J1885) IV ×2 (02:33→08:16)
[2017-12-31 05:55] LABS: BASO % 0.1 % (0.0-1.0); EOS % 0.2 % (0.0-3.0); HEMATOCRIT 33.8 % (36.0-47.0); HEMOGLOBIN 11.1 g/dl (12.0-15.5); IMMATURE GRANULOCYTE % 0.4 % (0-3.0); LYMPH % 10.8 % (24.0-44.0); MEAN CORPUSCULAR HEMOGLOBIN 31.3 pg (27.0-33.0); MEAN CORPUSCULAR HGB CONC 32.8 g/dl (32.0-36.5); MEAN CORPUSCULAR VOLUME 95.2 fl (80.0-96.0); MONO # 0.9 10^3/uL (0.0-0.8); MONO % 10.2 % (0.0-5.0); NEUTROPHILS % 78.3 % (36.0-66.0); PLATELET COUNT, AUTOMATED 210 10^3/uL (150-450); RED BLOOD COUNT 3.55 10^6/uL (4.00-5.40); RED CELL DISTRIBUTION WIDTH 11.9 % (11.5-14.5)
[2017-12-31] MEDS: SLF 3 ML SYR IV ×2 (06:00→14:00)
[2017-12-31 06:17] LABS: ANION GAP 4 MEQ/L (8-16); BLOOD UREA NITROGEN 13 MG/DL (7-18); CALCIUM LEVEL 8.3 MG/DL (8.5-10.1); CARBON DIOXIDE LEVEL 34 MEQ/L (21-32); CHLORIDE LEVEL 99 MEQ/L (98-107); CREATININE FOR GFR 0.68 MG/DL (0.55-1.30); GLOMERULAR FILTRATION RATE > 60.0 (>51); GLUCOSE, FASTING 119 MG/DL (70-100); POTASSIUM SERUM 3.8 MEQ/L (3.5-5.1); SODIUM LEVEL 137 MEQ/L (136-145)
[2017-12-31] MEDS: HumaLOG INSULIN (NovoLOG) PER UNIT SC ×4 (07:30→21:00)
[2017-12-31] MEDS: PANTOPRAZOLE 40MG TAB (PROTONIX) PO (08:14)
[2017-12-31] MEDS: DOCUSATE SODIUM 100 MG CAP PO ×2 (08:15→20:58)
[2017-12-31] MEDS: THIAMINE 100 MG TAB PO (08:15)
[2017-12-31] MEDS: FOLIC ACID 1 MG TAB PO (08:15)
[2017-12-31] MEDS: MULTIVITAMINS/MINERALS THERAP 1 TAB PO (08:15)
[2017-12-31] MEDS: SENOKOT S TAB PO ×2 (08:15→20:58)
[2017-12-31] MEDS: FLECAINIDE 50MG TABLET PO ×2 (08:15→21:06)
[2017-12-31] MEDS: HEPARIN SOD (PORCINE) 5000 UNITS/ML VIAL SC ×2 (08:17→20:59)
[2017-12-31] MEDS: MOM 30ML SUSPENSION UDC PO (08:17)
[2017-12-31 11:40] LABS: BEDSIDE GLUCOSE 117 MG/DL (70-105)
[2017-12-31 16:51] LABS: BEDSIDE GLUCOSE 113 MG/DL (70-105)
[2017-12-31 20:49] LABS: BEDSIDE GLUCOSE 184 MG/DL (70-105)
[2017-12-31] MEDS: ACETAMINOPHEN TAB 650MG DOSE (2X325MG) PO (20:58)
[2017-12-31] MEDS: FENTANYL/BUPIVACAINE/NACL BAG 250 ML EPIDURAL (22:51)
[2017-12-31] MEDS: LORazepam 1 MG TAB PO (23:57)
[2018-01-01] MEDS: SLF 3 ML SYR IV ×4 (00:02→22:00)
[2018-01-01] MEDS: LEVALBUTEROL 1.25 MG/0.5 ML CONCENTRATE NEB NEB ×4 (01:05→20:29)
[2018-01-01 05:54] LABS: HEMATOCRIT 31.7 % (36.0-47.0); HEMOGLOBIN 10.7 g/dl (12.0-15.5); IMMATURE GRANULOCYTE % 0.4 % (0-3.0); LYMPH # 0.8 10^3/uL (1.5-4.5); LYMPH % 9.7 % (24.0-44.0); MEAN CORPUSCULAR HEMOGLOBIN 31.3 pg (27.0-33.0); MEAN CORPUSCULAR HGB CONC 33.8 g/dl (32.0-36.5); MEAN CORPUSCULAR VOLUME 92.7 fl (80.0-96.0); MONO # 0.7 10^3/uL (0.0-0.8); MONO % 8.5 % (0.0-5.0); NEUTROPHILS # 6.5 10^3/uL (1.8-7.7); NEUTROPHILS % 81.4 % (36.0-66.0); PLATELET COUNT, AUTOMATED 236 10^3/uL (150-450); RED BLOOD COUNT 3.42 10^6/uL (4.00-5.40); WHITE BLOOD COUNT 7.9 10^3/uL (4.0-10.0)
[2018-01-01 06:12] LABS: ANION GAP 7 MEQ/L (8-16); BLOOD UREA NITROGEN 8 MG/DL (7-18); CALCIUM LEVEL 8.2 MG/DL (8.5-10.1); CARBON DIOXIDE LEVEL 32 MEQ/L (21-32); CHLORIDE LEVEL 100 MEQ/L (98-107); CREATININE FOR GFR 0.58 MG/DL (0.55-1.30); GLOMERULAR FILTRATION RATE > 60.0 (>51); GLUCOSE, FASTING 127 MG/DL (70-100); POTASSIUM SERUM 3.5 MEQ/L (3.5-5.1); SODIUM LEVEL 139 MEQ/L (136-145)
[2018-01-01] MEDS: HYDROCORTISONE 100 MG/2 ML VIAL (J1720) IV (06:38)
[2018-01-01] MEDS: HumaLOG INSULIN (NovoLOG) PER UNIT SC ×4 (07:30→20:22)
[2018-01-01] MEDS ORDERED: MUPIROCIN 2% OINT 22 GM TUBE TOP (08:00)
[2018-01-01] MEDS: HEPARIN SOD (PORCINE) 5000 UNITS/ML VIAL SC ×2 (09:49→20:32)
[2018-01-01] MEDS: MOM 30ML SUSPENSION UDC PO (09:49)
[2018-01-01] MEDS: MULTIVITAMINS/MINERALS THERAP 1 TAB PO (09:50)
[2018-01-01] MEDS: THIAMINE 100 MG TAB PO (09:50)
[2018-01-01] MEDS: DOCUSATE SODIUM 100 MG CAP PO ×2 (09:50→20:31)
[2018-01-01] MEDS: SENOKOT S TAB PO ×2 (09:50→20:31)
[2018-01-01] MEDS: PANTOPRAZOLE 40MG TAB (PROTONIX) PO (09:50)
[2018-01-01] MEDS: FOLIC ACID 1 MG TAB PO (09:50)
[2018-01-01] MEDS: FLECAINIDE 50MG TABLET PO ×2 (09:57→20:32)
[2018-01-01 12:00] LABS: BEDSIDE GLUCOSE 156 MG/DL (70-105)
[2018-01-01] MEDS: PERCOCET 5MG/325MG TAB PO ×2 (16:21→20:32)
[2018-01-01 17:14] LABS: BEDSIDE GLUCOSE 97 MG/DL (70-105)
[2018-01-01 20:18] LABS: BEDSIDE GLUCOSE 137 MG/DL (70-105)
[2018-01-01] MEDS: HYDROCORTISONE 10 MG TAB PO (20:31)
[2018-01-01] MEDS: LORazepam 1 MG TAB PO (22:57)
[2018-01-02] MEDS: PERCOCET 5MG/325MG TAB PO ×3 (00:25→08:50)
[2018-01-02] MEDS: LEVALBUTEROL 1.25 MG/0.5 ML CONCENTRATE NEB NEB ×2 (01:11→07:49)
[2018-01-02] MEDS: SLF 3 ML SYR IV (05:25)
[2018-01-02 06:49] LABS: BEDSIDE GLUCOSE 97 MG/DL (70-105)
[2018-01-02] MEDS: HumaLOG INSULIN (NovoLOG) PER UNIT SC ×2 (07:17→12:00)
[2018-01-02] MEDS: MOM 30ML SUSPENSION UDC PO (08:47)
[2018-01-02] MEDS: HEPARIN SOD (PORCINE) 5000 UNITS/ML VIAL SC (08:47)
[2018-01-02] MEDS: DOCUSATE SODIUM 100 MG CAP PO (08:48)
[2018-01-02] MEDS: THIAMINE 100 MG TAB PO (08:48)
[2018-01-02] MEDS: MULTIVITAMINS/MINERALS THERAP 1 TAB PO (08:48)
[2018-01-02] MEDS: FLECAINIDE 50MG TABLET PO (08:48)
[2018-01-02] MEDS: HYDROCORTISONE 10 MG TAB PO (08:48)
[2018-01-02] MEDS: PANTOPRAZOLE 40MG TAB (PROTONIX) PO (08:48)
[2018-01-02] MEDS: FOLIC ACID 1 MG TAB PO (08:48)
[2018-01-02] MEDS: SENOKOT S TAB PO (08:48)
[2018-01-02 11:58] LABS: BEDSIDE GLUCOSE 107 MG/DL (70-105)
== END 2018-01-02 13:50 | disposition home or self-care (01) | DRG 120 ==
LOC: M ED 12:25 → M ED INP 13:30 → M PCU 14:00
PROC: 0BBG4ZZ Excision of Left Upper Lung Lobe, Percutaneous Endoscopic Approach (ICD-10-PCS; principal; 2017-12-28 12:30)
PROC: 3E0L3GC Introduction of Other Therapeutic Substance into Pleural Cavity, Percutaneous Approach (ICD-10-PCS; 2017-12-28 12:30)
PROC: 0W9B30Z Drainage of Left Pleural Cavity with Drainage Device, Percutaneous Approach (ICD-10-PCS; 2017-12-28 12:38)
DX: J93.83 Other pneumothorax (principal); E27.1 Primary adrenocortical insufficiency; J43.9 Emphysema, unspecified; R00.0 Tachycardia, unspecified; F10.20 Alcohol dependence, uncomplicated; Z79.52 Long term (current) use of systemic steroids; Z79.899 Other long term (current) drug therapy; Z88.0 Allergy status to penicillin; Z87.891 Personal history of nicotine dependence

== ENCOUNTER → 2017-12-26 | Outpatient (CLI) | payer OTHER | LOC: M WUC 11:24 | DX: J93.9 Pneumothorax, unspecified (principal); J20.9 Acute bronchitis, unspecified; R06.02 Shortness of breath | CPT/HCPCS: 71046 ==

== ENCOUNTER → 2018-01-20 | Outpatient (CLI) | payer OTHER | LOC: M SMT 10:04 | DX: J93.9 Pneumothorax, unspecified (principal) | CPT/HCPCS: 71046 ==

== ENCOUNTER 2018-02-07 04:20 | Emergency (ER) | payer OTHER ==
[2018-02-07] MEDS: KETOROLAC TROMETHAMINE 10 MG TAB PO (06:50)
[2018-02-07] MEDS: ACETAMINOPHEN 325 MG TAB PO (06:51)
== END 2018-02-07 07:30 | disposition home or self-care (01) ==
LOC: M ED 04:20
DX: S60.221A Contusion of right hand, initial encounter (principal); S80.01XA Contusion of right knee, initial encounter; W19.XXXA Unspecified fall, initial encounter; Y92.099 Unspecified place in other non-institutional residence as the place of occurrence of the external cause; Y93.9 Activity, unspecified; Y99.9 Unspecified external cause status; J44.9 Chronic obstructive pulmonary disease, unspecified; Z87.891 Personal history of nicotine dependence; Z79.899 Other long term (current) drug therapy; Z88.0 Allergy status to penicillin; Z88.5 Allergy status to narcotic agent
CPT/HCPCS: 73130

== ENCOUNTER → 2018-02-21 | Outpatient (CLI) | payer OTHER | LOC: M SMT 08:53 | DX: J93.9 Pneumothorax, unspecified (principal) | CPT/HCPCS: 71046 ==

== ENCOUNTER → 2018-02-24 | Outpatient (REF) | payer OTHER ==
[2018-02-24 15:49] LABS: ANION GAP 5 MEQ/L (8-16); BLOOD UREA NITROGEN 10 MG/DL (7-18); CALCIUM LEVEL 9.2 MG/DL (8.5-10.1); CARBON DIOXIDE LEVEL 32 MEQ/L (21-32); CHLORIDE LEVEL 95 MEQ/L (98-107); CREATININE FOR GFR 0.72 MG/DL (0.55-1.30); GLOMERULAR FILTRATION RATE > 60.0 (>51); GLUCOSE, FASTING 83 MG/DL (70-100); SODIUM LEVEL 132 MEQ/L (136-145)
== END ==
LOC: M LABDRAW1 13:15
DX: E27.1 Primary adrenocortical insufficiency (principal)
CPT/HCPCS: 80048

== ENCOUNTER 2018-03-29 08:10 | Emergency (ER) | payer OTHER ==
[2018-03-29] MEDS: PERCOCET 5MG/325MG TAB PO (09:09)
[2018-03-29 09:56] LABS: INFLUENZA A AMPLIFICATION NEGATIVE (NEGATIVE); INFLUENZA B AMPLIFICATION NEGATIVE (NEGATIVE)
== END 2018-03-29 10:13 | disposition home or self-care (01) ==
LOC: M ED 08:10
DX: J40 Bronchitis, not specified as acute or chronic (principal); I45.10 Unspecified right bundle-branch block; J44.9 Chronic obstructive pulmonary disease, unspecified; E27.1 Primary adrenocortical insufficiency; Z87.891 Personal history of nicotine dependence; Z88.0 Allergy status to penicillin; Z88.5 Allergy status to narcotic agent; Z79.899 Other long term (current) drug therapy
CPT/HCPCS: 71046

== ENCOUNTER → 2018-04-20 | Outpatient (REF) | payer OTHER ==
[2018-04-20 12:46] LABS: ANION GAP 7 MEQ/L (8-16); BLOOD UREA NITROGEN 7 MG/DL (7-18); CALCIUM LEVEL 9.7 MG/DL (8.5-10.1); CARBON DIOXIDE LEVEL 32 MEQ/L (21-32); CHLORIDE LEVEL 96 MEQ/L (98-107); CREATININE FOR GFR 0.75 MG/DL (0.55-1.30); GLOMERULAR FILTRATION RATE > 60.0 (>51); GLUCOSE, FASTING 113 MG/DL (70-100); POTASSIUM SERUM 3.6 MEQ/L (3.5-5.1); SODIUM LEVEL 135 MEQ/L (136-145)
== END ==
LOC: M LAB REF 12:16
DX: E27.1 Primary adrenocortical insufficiency (principal); I10 Essential (primary) hypertension
CPT/HCPCS: 80048

== ENCOUNTER → 2018-05-03 | Outpatient (CLI) | payer OTHER | LOC: M WHC 06:35 | DX: Z12.39 Encounter for other screening for malignant neoplasm of breast (principal); E27.1 Primary adrenocortical insufficiency | CPT/HCPCS: 77067 ==

== ENCOUNTER → 2018-05-04 | Outpatient (REF) | payer OTHER | LOC: M SFHCPLAZ 11:51 | DX: C44.329 Squamous cell carcinoma of skin of other parts of face (principal); L57.8 Other skin changes due to chronic exposure to nonionizing radiation; D22.5 Melanocytic nevi of trunk | CPT/HCPCS: 88305 ==

== ENCOUNTER 2018-05-07 00:34 | Emergency (ER) | payer OTHER | END 2018-05-07 01:55 | disposition home or self-care (01) | LOC: M ED 00:34 | DX: R59.0 Localized enlarged lymph nodes (principal); E27.1 Primary adrenocortical insufficiency; Z87.891 Personal history of nicotine dependence | CPT/HCPCS: 99283 ==

== ENCOUNTER → 2018-05-10 | Outpatient (REF) | payer OTHER ==
[2018-05-10 19:35] LABS: BASO % 0.2 % (0.0-1.0); EOS % 0.2 % (0.0-3.0); HEMATOCRIT 43.7 % (36.0-47.0); HEMOGLOBIN 14.7 g/dl (12.0-15.5); IMMATURE GRANULOCYTE % 0.3 % (0-3.0); LYMPH # 2.6 10^3/uL (1.5-4.5); LYMPH % 25.9 % (24.0-44.0); MEAN CORPUSCULAR HEMOGLOBIN 30.9 pg (27.0-33.0); MEAN CORPUSCULAR HGB CONC 33.6 g/dl (32.0-36.5); MEAN CORPUSCULAR VOLUME 91.8 fl (80.0-96.0); MONO % 10.1 % (0.0-5.0); NEUTROPHILS # 6.4 10^3/uL (1.8-7.7); NEUTROPHILS % 63.3 % (36.0-66.0); PLATELET COUNT, AUTOMATED 345 10^3/uL (150-450); RED BLOOD COUNT 4.76 10^6/uL (4.00-5.40); RED CELL DISTRIBUTION WIDTH 12.2 % (11.5-14.5); WHITE BLOOD COUNT 10.2 10^3/uL (4.0-10.0)
== END ==
LOC: M LAB REF 19:08
DX: R59.0 Localized enlarged lymph nodes (principal)

== ENCOUNTER → 2018-05-31 | Outpatient (CLI) | payer OTHER ==
[~2018-05-31] MED LIST changes: +CEFU50TA PO; +FLEC25TA; +FLEC50HA PO; -FLEC50TA PO; +FLUD0.1T; +FLUD0.1T PO; -FLUD1TA PO; +MELO15TA28; +NORCOTAB PO; +TRAM50TA2 PO; +VITA1CAP25; +VITA200015; +[UNRECOGNIZED DRUG - CODE] INJ; -[UNRECOGNIZED DRUG - CODE] INJ
--- NOTE | 2018-06-01 07:46 | REP ---
Clinical: Cervical adenopathy. Technique: Real time woods scale and color evaluation using linear high. Findings: Directed ultrasound examination along the left side of the neck demonstrates 15 x 5 x 6 mm normal appearing lymph node at the site of physically palpated mass. Impression: Solitary lymph node. Electronically Signed by Jaison Emery MD 06/01/2018 07:36 A
== END ==
LOC: M RAD 12:06
PROVIDERS: ATTEND Family Medicine Addiction Medicine
DX: R59.0 Localized enlarged lymph nodes (principal)

== ENCOUNTER → 2018-06-30 | Outpatient (REF) | payer OTHER, SELFPAY ==
[2018-06-30 12:40] LABS: ALT/SGPT 25 U/L (12-78); BILIRUBIN,TOTAL 0.8 MG/DL (0.2-1.0); BLOOD UREA NITROGEN 9 MG/DL (7-18); CALCIUM LEVEL 9.5 MG/DL (8.5-10.1); CARBON DIOXIDE LEVEL 32 MEQ/L (21-32); CHLORIDE LEVEL 98 MEQ/L (98-107); CREATININE FOR GFR 0.74 MG/DL (0.55-1.30); GLOMERULAR FILTRATION RATE > 60.0 (>51); GLUCOSE, FASTING 93 MG/DL (70-100); POTASSIUM SERUM 3.9 MEQ/L (3.5-5.1); SODIUM LEVEL 136 MEQ/L (136-145)
[2018-06-30 12:44] LABS: BASO % 0.2 % (0.0-1.0); EOS % 0.2 % (0.0-3.0); HEMATOCRIT 47.2 % (36.0-47.0); HEMOGLOBIN 15.6 g/dl (12.0-15.5); LYMPH # 1.4 10^3/uL (1.5-4.5); LYMPH % 12.4 % (24.0-44.0); MEAN CORPUSCULAR HEMOGLOBIN 30.1 pg (27.0-33.0); MEAN CORPUSCULAR HGB CONC 33.1 g/dl (32.0-36.5); MEAN CORPUSCULAR VOLUME 91.1 fl (80.0-96.0); MONO # 0.6 10^3/uL (0.0-0.8); MONO % 5.4 % (0.0-5.0); MONO SCRN NEGATIVE (NEGATIVE); NEUTROPHILS # 8.8 10^3/uL (1.8-7.7); NEUTROPHILS % 81.2 % (36.0-66.0); PLATELET COUNT, AUTOMATED 306 10^3/uL (150-450); RED BLOOD COUNT 5.18 10^6/uL (4.00-5.40); WHITE BLOOD COUNT 10.9 10^3/uL (4.0-10.0)
== END ==
LOC: M LAB REF 11:48
PROVIDERS: ATTEND Family Medicine Addiction Medicine
DX: R13.11 Dysphagia, oral phase (principal); R59.0 Localized enlarged lymph nodes

== ENCOUNTER → 2018-08-31 | Outpatient (REF) | payer OTHER ==
[2018-08-31 14:07] LABS: BASO % 0.3 % (0.0-1.0); EOS % 0.1 % (0.0-3.0); HEMATOCRIT 42.6 % (36.0-47.0); HEMOGLOBIN 14.4 g/dl (12.0-15.5); LYMPH # 1.3 10^3/uL (1.5-4.5); LYMPH % 12.1 % (24.0-44.0); MEAN CORPUSCULAR HEMOGLOBIN 30.5 pg (27.0-33.0); MEAN CORPUSCULAR HGB CONC 33.8 g/dl (32.0-36.5); MEAN CORPUSCULAR VOLUME 90.3 fl (80.0-96.0); MONO # 0.6 10^3/uL (0.0-0.8); MONO % 5.4 % (0.0-5.0); NEUTROPHILS # 8.4 10^3/uL (1.8-7.7); NEUTROPHILS % 81.8 % (36.0-66.0); PLATELET COUNT, AUTOMATED 299 10^3/uL (150-450); RED BLOOD COUNT 4.72 10^6/uL (4.00-5.40); WHITE BLOOD COUNT 10.3 10^3/uL (4.0-10.0)
[2018-08-31 14:37] LABS: CHOLESTEROL RISK RATIO 1.713 (<5); THYROID STIMULATING HORMONE 0.406 uIU/ML (0.358-3.740)
== END ==
LOC: M LAB REF 13:28
PROVIDERS: ATTEND Family Medicine Addiction Medicine
DX: I10 Essential (primary) hypertension (principal); R53.83 Other fatigue; D75.1 Secondary polycythemia

== ENCOUNTER → 2018-10-07 | Outpatient (CLI) | payer OTHER ==
[~2018-10-07] MED LIST changes: -ERGO500014 PO; +HYDR-3715 PO; +HYDR20TA17 PO; -HYDR20TA3 PO; -NORCOTAB PO; +VITA500045 PO
--- NOTE | 2018-10-07 09:45 | REP ---
Left rib series: Five views including PA chest. History: Contusion. Comparison study: March 29, 2018. Findings: PA chest radiograph shows no evidence of pneumothorax or hydrothorax. Mediastinum is not widened. There is some tenting of the left hemidiaphragm unchanged from the March 29, 2018 prior study consistent with fibrosis. The aorta slightly tortuous. Heart is not enlarged. There is mild biapical pleuroparenchymal fibrosis also noted. Multiple views of the left rib cage demonstrate a pulmonary parenchymal suture line in the apex of the left lung. This is consistent with resection of bullae. There is no visible rib fracture or bony destructive lesion. Impression: Post thoracotomy changes on the left. No rib fracture or other acute bony abnormality. Electronically Signed by Dima Carrera MD 10/07/2018 09:37 A
== END ==
LOC: M WUC 08:50
PROVIDERS: ATTEND Physician Assistant
DX: S20.212A Contusion of left front wall of thorax, initial encounter (principal); X58.XXXA Exposure to other specified factors, initial encounter; Y92.89 Other specified places as the place of occurrence of the external cause

== ENCOUNTER → 2019-04-14 | Outpatient (REF) | payer OTHER ==
[2019-04-14 13:03] LABS: APPEARANCE, URINE CLEAR (CLEAR); BACTERIA, URINE AUTO NEGATIVE (NEGATIVE); BILIRUBIN, URINE AUTO NEGATIVE (NEGATIVE); BLOOD, URINE BLOOD 2+ (NEGATIVE); COLOR, URINE YELLOW (YELLOW); GLUCOSE, URINE (UA) AUTO NEGATIVE (NEGATIVE); KETONE, URINE AUTO TRACE mg/dL (NEGATIVE); LEUKOCYTE ESTERASE, URINE AUTO NEGATIVE (NEGATIVE); MUCUS, URINE SMALL (NEGATIVE); NITRITE, URINE AUTO NEGATIVE (NEGATIVE); PROTEIN, URINE AUTO 1+ mg/dL (NEGATIVE); RBC, URINE AUTO 16 /HPF (0-3); SPECIFIC GRAVITY URINE AUTO 1.017 (1.002-1.035); SQUAMOUS EPITHELIAL CELL UR AU 0 /HPF (0-6); WBC, URINE AUTO 0 /HPF (0-3)
[2019-04-14 13:07] LABS: BASO % 0.3 % (0.0-1.0); EOS % 0.3 % (0.0-3.0); HEMATOCRIT 46.6 % (36.0-47.0); HEMOGLOBIN 15.5 g/dl (12.0-15.5); LYMPH # 1.5 10^3/uL (1.5-5.0); LYMPH % 12.6 % (24.0-44.0); MEAN CORPUSCULAR HEMOGLOBIN 31.1 pg (27.0-33.0); MEAN CORPUSCULAR HGB CONC 33.3 g/dl (32.0-36.5); MEAN CORPUSCULAR VOLUME 93.6 fl (80.0-96.0); MONO # 0.7 10^3/uL (0.0-0.8); MONO % 6.4 % (0.0-5.0); NEUTROPHILS # 9.2 10^3/uL (1.5-8.5); NEUTROPHILS % 80.1 % (36.0-66.0); PLATELET COUNT, AUTOMATED 271 10^3/uL (150-450); RED BLOOD COUNT 4.98 10^6/uL (4.00-5.40); WHITE BLOOD COUNT 11.5 10^3/uL (4.0-10.0)
[2019-04-14 13:21] LABS: ALT/SGPT 21 U/L (12-78); BILIRUBIN,DIRECT 0.2 MG/DL (0.0-0.2); BILIRUBIN,TOTAL 0.8 MG/DL (0.2-1.0); BLOOD UREA NITROGEN 11 MG/DL (7-18); CALCIUM LEVEL 9.4 MG/DL (8.5-10.1); CARBON DIOXIDE LEVEL 32 MEQ/L (21-32); CHLORIDE LEVEL 99 MEQ/L (98-107); CHOLESTEROL LEVEL 242 MG/DL (<200); CREATININE FOR GFR 0.75 MG/DL (0.55-1.30); FREE T4 1.16 NG/DL (0.76-1.46); GLOMERULAR FILTRATION RATE > 60.0 (>51); GLUCOSE, FASTING 102 MG/DL (70-100); HDL CHOLESTEROL 110 MG/DL (>40); LDL CHOLESTEROL 111 MG/DL (<100); NON-HDL-C 132 MG/DL; POTASSIUM SERUM 3.7 MEQ/L (3.5-5.1); SODIUM LEVEL 136 MEQ/L (136-145); TOTAL PROTEIN 7.3 GM/DL (6.4-8.2); TRIGLYCERIDES LEVEL 107 MG/DL (<150)
[2019-04-14 13:22] LABS: TOTAL 25(OH) VITAMIN D 76.8 NG/ML (30.0-100.0)
[2019-04-14 13:34] LABS: HEMOGLOBIN A1c 5.7 %
== END ==
LOC: M LAB REF 12:38
PROVIDERS: ATTEND Nurse Practitioner Family
DX: Z13.9 Encounter for screening, unspecified (principal); I10 Essential (primary) hypertension; E27.1 Primary adrenocortical insufficiency

== ENCOUNTER → 2019-05-10 | Outpatient (REF) | payer OTHER ==
[2019-05-10 13:41] LABS: APPEARANCE, URINE CLEAR (CLEAR); BACTERIA, URINE AUTO NEGATIVE (NEGATIVE); BILIRUBIN, URINE AUTO NEGATIVE (NEGATIVE); BLOOD, URINE BLOOD 2+ (NEGATIVE); COLOR, URINE COLORLESS (YELLOW); GLUCOSE, URINE (UA) AUTO NEGATIVE (NEGATIVE); KETONE, URINE AUTO NEGATIVE (NEGATIVE); LEUKOCYTE ESTERASE, URINE AUTO NEGATIVE (NEGATIVE); NITRITE, URINE AUTO NEGATIVE (NEGATIVE); PROTEIN, URINE AUTO NEGATIVE (NEGATIVE); RBC, URINE AUTO 1 /HPF (0-3); SPECIFIC GRAVITY URINE AUTO 1.003 (1.002-1.035); SQUAMOUS EPITHELIAL CELL UR AU 0 /HPF (0-6); UROBILINOGEN, URINE AUTO 0.2 mg/dL (0.0-2.0); WBC, URINE AUTO 0 /HPF (0-3)
== END ==
LOC: M SMT 12:47
PROVIDERS: ATTEND Nurse Practitioner Family
DX: R31.29 Other microscopic hematuria (principal)

== ENCOUNTER → 2019-06-02 | Outpatient (CLI) | payer OTHER ==
[~2019-06-02] MED LIST changes: +ISOVUE-370 76% 100ML VIAL (Q9967) As Ordered ONE
--- NOTE | 2019-06-02 11:29 | REP ---
CT ABDOMEN AND PELVIS WITH AND WITHOUT IV CONTRAST( CT UROGRAM): CT abdomen and pelvis performed prior to and following the intravenous administration of 100 mL of Isovue 370. Sagittal, coronal and 3D MIP reconstruction images are performed. There is no evidence of renal, ureteral, or bladder calculus. No gallstones are seen in the gallbladder. Liver demonstrates no mass. There is no biliary dilatation. A few calcified granulomas are seen in the spleen, which is not enlarged. The adrenal glands are normal. No pancreatic mass is seen and there is no pancreatic duct dilatation. There is a subcentimeter cyst in the mid right kidney. No renal mass is seen. Pelvicaliceal systems and ureters appear unremarkable and are not dilated. Urinary bladder is mildly distended with definite filling defect. There is mild atherosclerotic calcification of the abdominal aorta without aneurysm. There is no adenopathy. There is no free air or free fluid. There is no bowel wall thickening. The appendix is normal. Diverticula are seen of the sigmoid colon, with a few also seen in the left colon. There is no diverticulitis. The patient has had a hysterectomy. No pelvic mass is seen. IMPRESSION: Subcentimeter right renal cyst. No other evidence of renal mass and no evidence of calculus in the kidneys, ureters or bladder. No hydroureteronephrosis. Calcified splenic granulomas. Sigmoid and left colonic diverticulosis without acute diverticulitis. Electronically Signed by Colby Hamm MD 06/02/2019 04:47 P
== END ==
LOC: M RAD 09:46
PROVIDERS: ATTEND Nurse Practitioner Family
DX: N28.1 Cyst of kidney, acquired (principal); K57.30 Diverticulosis of large intestine without perforation or abscess without bleeding; D73.89 Other diseases of spleen
CPT/HCPCS: 74178; Q9967

== ENCOUNTER → 2019-07-18 | Outpatient (REF) | payer OTHER ==
[~2019-07-18] MED LIST changes: -ISOVUE-370 76% 100ML VIAL (Q9967) As Ordered ONE
[2019-07-18 11:53] LABS: HEMOGLOBIN A1c 5.3 %
== END ==
LOC: M LAB REF 11:05
PROVIDERS: ATTEND Physician Assistant
DX: R73.03 Prediabetes (principal); Z11.59 Encounter for screening for other viral diseases

== ENCOUNTER → 2019-10-11 | Outpatient (REF) | payer OTHER | LOC: M LAB REF 10:38 | PROVIDERS: ATTEND Dermatology | DX: D22.39 Melanocytic nevi of other parts of face (principal) ==

== ENCOUNTER → 2019-10-11 | Outpatient (REF) | payer OTHER, MEDICAID ==
[2019-10-11 13:53] LABS: HEMOGLOBIN A1c 5.6 %
== END ==
LOC: M LAB REF 12:57
PROVIDERS: ATTEND Physician Assistant
DX: R73.03 Prediabetes (principal); Z11.59 Encounter for screening for other viral diseases

== ENCOUNTER 2020-01-03 07:12 | Emergency (ER) | payer MEDICAID, OTHER ==
[~2020-01-03] VITALS: Ht 172.7 cm; Wt 59.5 kg
[~2020-01-03 07:12] MED LIST changes: -HYDR20TA17 PO; +HYDR20TA2 PO
[2020-01-03] MEDS ORDERED: MORPHINE 2 MG/ML 1ML VIAL (J2270) IV ONE (07:30)
[2020-01-03] MEDS ORDERED: ONDANSETRON 4MG/2ML VIAL IV ONE (07:30)
[2020-01-03] MEDS ORDERED: VITA200015 PO (07:42)
[2020-01-03] MEDS ORDERED: LISI-542 PO (07:42)
[2020-01-03 07:44] LABS: BASO # 0.1 10^3/uL (0.0-0.2); BASO % 0.6 % (0.0-1.0); EOS # 0.1 10^3/uL (0.0-0.5); EOS % 1.3 % (0.0-3.0); HEMATOCRIT 50.8 % (36.0-47.0); LYMPH # 3.7 10^3/uL (1.5-5.0); MEAN CORPUSCULAR HEMOGLOBIN 31.4 pg (27.0-33.0); MEAN CORPUSCULAR HGB CONC 34.8 g/dl (32.0-36.5); MEAN CORPUSCULAR VOLUME 90.1 fl (80.0-96.0); MONO # 1.1 10^3/uL (0.0-0.8); MONO % 10.1 % (0.0-5.0); NEUTROPHILS # 5.8 10^3/uL (1.5-8.5); NEUTROPHILS % 53.6 % (36.0-66.0); PLATELET COUNT, AUTOMATED 290 10^3/uL (150-450); RED BLOOD COUNT 5.64 10^6/uL (4.00-5.40); WHITE BLOOD COUNT 10.9 10^3/uL (4.0-10.0)
[2020-01-03 07:46] LABS: HEMOGLOBIN 17.7 g/dl (12.0-15.5)
[2020-01-03 08:22] LABS: ALBUMIN 4.5 GM/DL (3.2-5.2); BILIRUBIN,DIRECT 0.3 MG/DL (0.0-0.2); BILIRUBIN,TOTAL 1.1 MG/DL (0.2-1.0); FREE T4 1.24 NG/DL (0.76-1.46); THYROID STIMULATING HORMONE 1.44 uIU/ML (0.358-3.740); TOTAL PROTEIN 8.2 GM/DL (6.4-8.2)
[2020-01-03] MEDS ORDERED: ISOVUE-370 76% 100ML VIAL As Ordered ONE (08:35)
--- NOTE | 2020-01-03 09:19 | REP ---
Clinical: Acute chest pain. Technique: Axial contrast enhanced images from the thoracic inlet to the upper abdomen using 75 ml Isovue 370 intravenous contrast material with coronal and sagittal re-formations. Findings: Satisfactory enhancement of the pulmonary vasculature is achieved and no filling defects are identified to suggest pulmonary embolus. Thoracic aorta demonstrates mild atherosclerotic changes along with moderate dilatation to the ascending aorta measuring 4.3 cm maximal diameter. No evidence for dissection. Heart and pericardium are normal. Lung freed demonstrate scattered chronic interstitial changes along with biapical and primarily left basilar scarring. Very subtle focal area of nodularity at the lingula and anterior basilar left lower lobe likely represent chronic changes as compared to 06/02/2019. No discrete focal consolidation. No effusion or pneumothorax. No adenopathy. Surrounding musculoskeletal structures demonstrate age-related changes. Impression: 1. No evidence for pulmonary embolus. 2. Moderately prominent ascending thoracic aorta measuring up to 4.3 cm diameter unchanged as compared to 12/27/2017. 3. Chronic-appearing pleuroparenchymal changes without obvious acute process. Electronically Signed by Jaison Emery MD 01/03/2020 09:11 A
--- NOTE | 2020-01-03 09:22 | REP ---
PORTABLE CHEST X-RAY: Two views. HISTORY: Chest pain. COMPARISON STUDY: October 07, 2018. FINDINGS: There is a 1.7 cm nodular opacity projecting in the right lung base which may be nipple shadow although it is unilateral and a pulmonary nodule cannot be excluded. It is not previously apparent. The right lung is otherwise clear. The lungs are somewhat hyperinflated overall. There is some pleuroparenchymal linear fibrosis in the left base unchanged. The heart is not enlarged. The aorta slightly tortuous. EKG monitoring electrodes and oxygen delivery tubing is seen. IMPRESSION: Nodular density right base. Nipple shadow versus pulmonary nodule. PA chest x-rays with nipple markers in place suggested, arms raised and lowered exposures. Pleuroparenchymal fibrosis changes left base. Hyperinflation. Otherwise no active disease. Electronically Signed by Dima Carrera MD 01/03/2020 12:47 P
[2020-01-03 10:02] VITALS: BP 107/76
--- NOTE | 2020-01-03 11:06 | ECGEPIP ---
[facility] - ED Test Date: 2020-01-03 Pat Name: VITOR TORRES Department: Room: - Gender: Female Gut Sorter: elvira MANCILLAB: 1960 Requested By: MARTHA Guerra PA-C Order Number: [id number] Reading MD: Tracy Dickinson Measurements Intervals [place] Rate: 96 P: 71 [place]: 153 QRS: 43 QRSD: 88 T: 21 QT: 336 QTc: 426 Interpretive Statements SINUS RHYTHM WITH OCCASIONAL VENTRICULAR PREMATURE COMPLEXES LEFT ATRIAL ENLARGEMENT POSSIBLE RIGHT VENTRICULAR CONDUCTION DELAY INFERIOR INFARCT, AGE INDETERMINATE Electronically Signed on 01-03-2020 11:06:18 EDT by Tracy Dickinson
--- NOTE | 2020-01-03 19:24 | ED PDOC ---
Post-Departure Follow-Up ronel everett faxed formal report of cta chest and cxr for fu Nicole Pathak MD Jan 03, 2020 19:24
== END 2020-01-03 10:04 | disposition home or self-care (01) ==
LOC: M ED 07:12
DX: R07.9 Chest pain, unspecified (principal); M54.9 Dorsalgia, unspecified; E87.1 Hypo-osmolality and hyponatremia; J44.9 Chronic obstructive pulmonary disease, unspecified; E27.1 Primary adrenocortical insufficiency; Z79.899 Other long term (current) drug therapy; Z88.0 Allergy status to penicillin; Z88.5 Allergy status to narcotic agent; F17.210 Nicotine dependence, cigarettes, uncomplicated
CPT/HCPCS: 71045; 71275; 80047; 80076; 83690; 84439; 84443; 85025; 93005; 93041; 94760; 96374; 96375; 99285; J2270; J2405; Q9967

== ENCOUNTER 2020-01-06 15:52 | Emergency (ER) | payer OTHER ==
[~2020-01-06 15:52] MED LIST changes: +LISI-542 PO; +VITA200015 PO
[2020-01-06] MEDS ORDERED: ONDANSETRON 4MG/2ML VIAL As Ordered ONE (16:53)
[2020-01-06] MEDS ORDERED: ISOVUE-370 76% 100ML VIAL As Ordered ONE (18:17)
[2020-01-06] MEDS ORDERED: ONDANSETRON 4 MG TAB As Ordered ONE (20:34)
[2020-02-02 11:42] LABS: APPEARANCE, URINE HAZY (CLEAR); BACTERIA, URINE AUTO 1+ (NEGATIVE); BILIRUBIN, URINE AUTO NEGATIVE (NEGATIVE); BLOOD, URINE BLOOD 3+ (NEGATIVE); COLOR, URINE YELLOW (YELLOW); GLUCOSE, URINE (UA) AUTO NEGATIVE (NEGATIVE); KETONE, URINE AUTO 1+ mg/dL (NEGATIVE); LEUKOCYTE ESTERASE, URINE AUTO NEGATIVE (NEGATIVE); MUCUS, URINE SMALL (NEGATIVE); NITRITE, URINE AUTO NEGATIVE (NEGATIVE); PROTEIN, URINE AUTO 2+ mg/dL (NEGATIVE); RBC, URINE AUTO 30 /HPF (0-3); SQUAMOUS EPITHELIAL CELL UR AU 0 /HPF (0-6); WBC, URINE AUTO 5 /HPF (0-3)
[2020-02-02 14:43] LABS: HEMOGLOBIN 16.3 g/dl (12.0-15.5); MEAN CORPUSCULAR VOLUME 91.4 fl (80.0-96.0); PLATELET COUNT, AUTOMATED 275 10^3/uL (150-450); RED BLOOD COUNT 5.25 10^6/uL (4.00-5.40); WHITE BLOOD COUNT 11.7 10^3/uL (4.0-10.0)
[2020-02-13 07:51] LABS: BLOOD UREA NITROGEN 7 MG/DL (7-18); CREATININE FOR GFR 0.77 MG/DL (0.55-1.30); GLOMERULAR FILTRATION RATE > 60.0 (>45); GLUCOSE, FASTING 108 MG/DL (70-100); SODIUM LEVEL 130 MEQ/L (136-145)
[2020-02-13 07:52] LABS: ALT/SGPT 37 IU/L (0-32); BILIRUBIN,DIRECT 0.3 MG/DL (0.0-0.2); BILIRUBIN,TOTAL 0.7 MG/DL (0.2-1.0); CALCIUM LEVEL 9.8 MG/DL (8.8-10.2); CARBON DIOXIDE LEVEL 32 mmol/L (20-29); CHLORIDE LEVEL 91 MEQ/L (98-107); POTASSIUM SERUM 4.3 MEQ/L (3.5-5.1)
[2020-02-13 07:59] LABS: ALBUMIN 4.4 GM/DL (3.2-5.2); LIPASE 139 U/L (73-393); TOTAL PROTEIN 8.1 GM/DL (6.4-8.2)
== END 2020-01-06 20:42 | disposition home or self-care (01) ==
LOC: M ED 15:52
DX: R10.9 Unspecified abdominal pain (principal); R11.2 Nausea with vomiting, unspecified; I10 Essential (primary) hypertension; J44.9 Chronic obstructive pulmonary disease, unspecified; E27.1 Primary adrenocortical insufficiency; E87.1 Hypo-osmolality and hyponatremia; Z87.442 Personal history of urinary calculi; Z88.0 Allergy status to penicillin; Z88.5 Allergy status to narcotic agent; F17.210 Nicotine dependence, cigarettes, uncomplicated
CPT/HCPCS: 74177; 80048; 80076; 81001; 83690; 85027; 87086; 96361; 96374; 96376; 99283; J2405; Q9967

== ENCOUNTER → 2020-09-20 | Outpatient (CLI) | payer OTHER, MEDICAID ==
[~2020-09-20] MED LIST changes: -LISI-542 PO; +LISI-898 PO
--- NOTE | 2020-09-20 10:46 | REP ---
INDICATION: PAIN AND CELLULITIS COMPARISON: Right tibia fibula dated 02/07/2018. TECHNIQUE: There are four views. FINDINGS: There is no fracture or dislocation. Mineralization and joint spaces are normal. There are no calcifications or foreign bodies. IMPRESSION: Essentially negative right ankle. <Electronically signed by Colby Pro > 09/20/20 [id number]
[2020-09-20 11:00] LABS: BASO % 0.3 % (0.0-1.0); EOS # 0.1 10^3/uL (0.0-0.5); EOS % 0.5 % (0.0-3.0); HEMATOCRIT 46.1 % (36.0-47.0); HEMOGLOBIN 15.7 g/dl (12.0-15.5); LYMPH # 1.5 10^3/uL (1.5-5.0); LYMPH % 13.1 % (24.0-44.0); MEAN CORPUSCULAR HGB CONC 34.1 g/dl (32.0-36.5); MEAN CORPUSCULAR VOLUME 93.9 fl (80.0-96.0); MONO % 8.2 % (2.0-8.0); NEUTROPHILS # 9.2 10^3/uL (1.5-8.5); NEUTROPHILS % 77.6 % (36.0-66.0); PLATELET COUNT, AUTOMATED 296 10^3/uL (150-450); RED BLOOD COUNT 4.91 10^6/uL (4.00-5.40); WHITE BLOOD COUNT 11.8 10^3/uL (4.0-10.0)
== END ==
LOC: M WUC 09:45
PROVIDERS: ATTEND Physician Assistant
DX: M25.571 Pain in right ankle and joints of right foot (principal); L03.115 Cellulitis of right lower limb

== ENCOUNTER → 2020-09-30 | Outpatient (REF) | payer OTHER, MEDICAID ==
[2020-09-30 18:22] LABS: BASO % 0.3 % (0.0-1.0); EOS % 0.4 % (0.0-3.0); HEMATOCRIT 45.8 % (36.0-47.0); HEMOGLOBIN 15.7 g/dl (12.0-15.5); LYMPH # 2.2 10^3/uL (1.5-5.0); LYMPH % 23.3 % (24.0-44.0); MEAN CORPUSCULAR HEMOGLOBIN 31.9 pg (27.0-33.0); MEAN CORPUSCULAR HGB CONC 34.3 g/dl (32.0-36.5); MEAN CORPUSCULAR VOLUME 93.1 fl (80.0-96.0); MONO # 0.6 10^3/uL (0.0-0.8); MONO % 6.7 % (2.0-8.0); NEUTROPHILS # 6.4 10^3/uL (1.5-8.5); PLATELET COUNT, AUTOMATED 308 10^3/uL (150-450); RED BLOOD COUNT 4.92 10^6/uL (4.00-5.40); WHITE BLOOD COUNT 9.3 10^3/uL (4.0-10.0)
[2020-09-30 19:33] LABS: ALBUMIN 4.1 GM/DL (3.2-5.2); ALT/SGPT 22 U/L (12-78); BILIRUBIN,TOTAL 0.6 MG/DL (0.2-1.0); BLOOD UREA NITROGEN 8 MG/DL (7-18); CALCIUM LEVEL 9.9 MG/DL (8.8-10.2); CARBON DIOXIDE LEVEL 31 MEQ/L (21-32); CHLORIDE LEVEL 96 MEQ/L (98-107); CREATININE FOR GFR 0.84 MG/DL (0.55-1.30); GLOMERULAR FILTRATION RATE > 60.0 (>45); GLUCOSE, FASTING 158 MG/DL (70-100); POTASSIUM SERUM 3.9 MEQ/L (3.5-5.1); SODIUM LEVEL 130 MEQ/L (136-145); TOTAL PROTEIN 7.5 GM/DL (6.4-8.2)
== END ==
LOC: M LAB REF 16:22
PROVIDERS: ATTEND Nurse Practitioner Family
DX: M25.571 Pain in right ankle and joints of right foot (principal)

== ENCOUNTER 2021-06-09 12:34 | Emergency (ER) | payer OTHER, MEDICAID ==
[~2021-06-09] VITALS: Ht 172.7 cm; Wt 53.9 kg
[~2021-06-09 12:34] MED LIST changes: -LISI-898 PO; +LISI5TAB11 PO
[2021-06-09 15:35] LABS: HEMATOCRIT 42.2 % (36.0-47.0); HEMOGLOBIN 14.7 g/dl (12.0-15.5); MEAN CORPUSCULAR HEMOGLOBIN 31.3 pg (27.0-33.0); MEAN CORPUSCULAR HGB CONC 34.8 g/dl (32.0-36.5); MEAN CORPUSCULAR VOLUME 89.8 fl (80.0-96.0); PLATELET COUNT, AUTOMATED 209 10^3/uL (150-450); WHITE BLOOD COUNT 6.6 10^3/uL (4.0-10.0)
[2021-06-09 16:14] LABS: ALBUMIN 3.5 GM/DL (3.2-5.2); ALT/SGPT 32 U/L (12-78); BILIRUBIN,DIRECT 0.2 MG/DL (0.0-0.2); BILIRUBIN,TOTAL 0.5 MG/DL (0.2-1.0); BLOOD UREA NITROGEN 8 MG/DL (7-18); CALCIUM LEVEL 9.6 MG/DL (8.8-10.2); CARBON DIOXIDE LEVEL 34 MEQ/L (21-32); CHLORIDE LEVEL 97 MEQ/L (98-107); CREATININE FOR GFR 0.55 MG/DL (0.55-1.30); GLOMERULAR FILTRATION RATE > 60.0 (>45); GLUCOSE, FASTING 97 MG/DL (70-100); LIPASE 148 U/L (73-393); POTASSIUM SERUM 3.8 MEQ/L (3.5-5.1); SODIUM LEVEL 135 MEQ/L (136-145); TOTAL PROTEIN 6.8 GM/DL (6.4-8.2)
[2021-06-09 16:15] LABS: ATYPICAL LYMPH 8 % (0-5); LYMPHOCYTES 30 % (16-44); MONOCYTES 9 % (0-5); NEUTROPHILS 53 % (28-66); PLATELET ESTIMATE NORMAL (NORMAL)
[2021-06-09] MEDS ORDERED: NS 1,000 ML IV ONE (16:55)
[2021-06-09] MEDS: COMBIVENT RESPIMAT 100-20MCG INHALER 4GM INH SCH ×3 (17:19→17:43)
[2021-06-09 18:07] LABS: MONO SCRN NEGATIVE (NEGATIVE)
[2021-06-09] MEDS ORDERED: ISOVUE-370 76% 100ML VIAL As Ordered ONE (19:13)
[2021-06-09] MEDS ORDERED: LEVO750T14 PO (21:16)
[2021-06-09] MEDS ORDERED: BENZ200C70 PO (21:18)
[2021-06-09] MEDS ORDERED: ALBU83IN NEB (21:18)
[2021-06-09] MEDS ORDERED: LevoFLOXacin 750 MG TABLET PO ONE (21:20)
[2021-06-09 21:44] VITALS: BP 133/89
[2021-06-26] MEDS ORDERED: LEVO750T13 (19:26)
== END 2021-06-09 21:51 | disposition home or self-care (01) ==
LOC: M ED 12:34
DX: J18.1 Lobar pneumonia, unspecified organism (principal); I10 Essential (primary) hypertension; J44.9 Chronic obstructive pulmonary disease, unspecified; E27.1 Primary adrenocortical insufficiency; Z79.899 Other long term (current) drug therapy; F17.210 Nicotine dependence, cigarettes, uncomplicated
CPT/HCPCS: 71046; 74177; 80048; 80076; 83690; 85025; 86308; 87798; 94640; 96360; 96361; 99284; Q9967

== ENCOUNTER 2021-06-17 12:16 | Emergency (ER) | payer OTHER, MEDICAID ==
[~2021-06-17] VITALS: Ht 172.7 cm; Wt 55.7 kg
[~2021-06-17 12:16] MED LIST changes: +ALBU83IN NEB; +BENZ200C70 PO; +LEVO750T14 PO; +LISI-898 PO; -LISI5TAB11 PO
[2021-06-17] MEDS ORDERED: methylPREDNISolone 125MG 2ML VIAL IV ONE (16:55)
[2021-06-17] MEDS ORDERED: NS 1,000 ML IV ONE (16:55)
[2021-06-17] MEDS ORDERED: ALBUTEROL 90 MCG/ACT 8GM HFA INHALER INH ONE (16:55)
--- NOTE | 2021-06-17 17:43 | REP ---
INDICATION: worsening pneumonia?. COMPARISON: 06/09/2021. TECHNIQUE: Single portable AP view of the chest was performed. FINDINGS: There is no acute infiltrate or pulmonary edema. There are stable bilateral fibrotic changes. The heart is not significantly enlarged. The mediastinal silhouette is unremarkable. The visualized osseous structures are intact. IMPRESSION: No acute pulmonary disease. <Electronically signed by Colby Hamm > 06/17/21 [id number]
[2021-06-17 18:13] LABS: BASO % 0.2 % (0.0-1.0); EOS % 0.2 % (0.0-3.0); HEMATOCRIT 36.6 % (36.0-47.0); HEMOGLOBIN 12.5 g/dl (12.0-15.5); LYMPH # 1.5 10^3/uL (1.5-5.0); LYMPH % 12.6 % (24.0-44.0); MEAN CORPUSCULAR HEMOGLOBIN 31.4 pg (27.0-33.0); MEAN CORPUSCULAR HGB CONC 34.2 g/dl (32.0-36.5); MONO # 0.8 10^3/uL (0.0-0.8); MONO % 6.6 % (2.0-8.0); NEUTROPHILS # 9.6 10^3/uL (1.5-8.5); PLATELET COUNT, AUTOMATED 273 10^3/uL (150-450); RED BLOOD COUNT 3.98 10^6/uL (4.00-5.40); WHITE BLOOD COUNT 12.1 10^3/uL (4.0-10.0)
[2021-06-17 18:28] LABS: ALBUMIN 3.6 GM/DL (3.2-5.2); ALT/SGPT 22 U/L (12-78); BILIRUBIN,DIRECT 0.3 MG/DL (0.0-0.2); BILIRUBIN,TOTAL 0.7 MG/DL (0.2-1.0); BLOOD UREA NITROGEN 14 MG/DL (7-18); CALCIUM LEVEL 9.1 MG/DL (8.8-10.2); CARBON DIOXIDE LEVEL 27 MEQ/L (21-32); CHLORIDE LEVEL 99 MEQ/L (98-107); CREATININE FOR GFR 0.68 MG/DL (0.55-1.30); GLOMERULAR FILTRATION RATE > 60.0 (>45); GLUCOSE, FASTING 118 MG/DL (70-100); NT-PRO BNP 361 PG/ML (<125); POTASSIUM SERUM 4.2 MEQ/L (3.5-5.1); SODIUM LEVEL 133 MEQ/L (136-145)
[2021-06-17] MEDS ORDERED: PRED20TA PO (19:23)
[2021-06-17 19:48] VITALS: BP 132/78
== END 2021-06-17 20:00 | disposition home or self-care (01) ==
LOC: M ED 12:16
DX: J44.1 Chronic obstructive pulmonary disease with (acute) exacerbation (principal); I10 Essential (primary) hypertension; E27.1 Primary adrenocortical insufficiency; Z79.899 Other long term (current) drug therapy; Z88.0 Allergy status to penicillin; Z88.5 Allergy status to narcotic agent; F17.210 Nicotine dependence, cigarettes, uncomplicated
CPT/HCPCS: 71045; 80048; 80076; 83605; 83880; 85025; 87040; 87798; 96361; 96374; 99284; J2930

== ENCOUNTER 2021-08-26 09:48 | Emergency (ER) | payer OTHER ==
[~2021-08-26] VITALS: Ht 172.7 cm; Wt 56.4 kg
[~2021-08-26 09:48] MED LIST changes: +LEVO750T13; -LISI-898 PO; +LISI5TAB11 PO; +PRED20TA PO
[2021-08-26 10:54] LABS: BASO % 0.3 % (0.0-1.0); EOS % 0.3 % (0.0-3.0); HEMATOCRIT 45.9 % (36.0-47.0); HEMOGLOBIN 15.8 g/dl (12.0-15.5); LYMPH % 15.7 % (24.0-44.0); MEAN CORPUSCULAR HGB CONC 34.4 g/dl (32.0-36.5); MEAN CORPUSCULAR VOLUME 92.9 fl (80.0-96.0); MONO # 0.4 10^3/uL (0.0-0.8); NEUTROPHILS % 77.5 % (36.0-66.0); PLATELET COUNT, AUTOMATED 269 10^3/uL (150-450); RED BLOOD COUNT 4.94 10^6/uL (4.00-5.40); WHITE BLOOD COUNT 6.4 10^3/uL (4.0-10.0)
[2021-08-26 11:05] LABS: INR 0.86; PARTIAL THROMBOPLASTIN TIME 27.5 SECONDS (25.9-37.0); PROTHROMBIN TIME 12.1 SECONDS (12.7-14.5)
[2021-08-26 11:24] LABS: CK-MB VALUE MASS 1.2 NG/ML (<3.6); MB/CK RELATIVE INDEX 2.03 (< OR =4)
[2021-08-26 11:32] LABS: ALBUMIN 4.4 GM/DL (3.2-5.2); ALT/SGPT 28 U/L (12-78); BILIRUBIN,DIRECT 0.2 MG/DL (0.0-0.2); BILIRUBIN,TOTAL 0.7 MG/DL (0.2-1.0); BLOOD UREA NITROGEN 9 MG/DL (7-18); CALCIUM LEVEL 10.2 MG/DL (8.8-10.2); CARBON DIOXIDE LEVEL 33 MEQ/L (21-32); CHLORIDE LEVEL 99 MEQ/L (98-107); CREATININE FOR GFR 0.63 MG/DL (0.55-1.30); GLOMERULAR FILTRATION RATE > 60.0 (>45); GLUCOSE, FASTING 96 MG/DL (70-100); NT-PRO BNP 223 PG/ML (<125); POTASSIUM SERUM 3.9 MEQ/L (3.5-5.1); SODIUM LEVEL 135 MEQ/L (136-145); THYROID STIMULATING HORMONE 0.507 uIU/ML (0.358-3.740); TOTAL PROTEIN 7.6 GM/DL (6.4-8.2)
[2021-08-26 11:34] LABS: RSV AMPLIFICATION NEGATIVE (NEGATIVE)
[2021-08-26 14:00] VITALS: BP 111/68
[2021-08-26 14:06] LABS: CK-MB VALUE MASS 1.4 NG/ML (<3.6); MB/CK RELATIVE INDEX 1.84 (< OR =4)
== END 2021-08-26 14:21 | disposition home or self-care (01) ==
LOC: M ED 09:48
DX: R00.2 Palpitations (principal); R06.02 Shortness of breath; I10 Essential (primary) hypertension; J44.9 Chronic obstructive pulmonary disease, unspecified; E27.1 Primary adrenocortical insufficiency; Z79.899 Other long term (current) drug therapy; Z88.0 Allergy status to penicillin; Z88.5 Allergy status to narcotic agent; F17.210 Nicotine dependence, cigarettes, uncomplicated

== ENCOUNTER → 2022-02-04 | Outpatient (CLI) | payer OTHER ==
[~2022-02-04] MED LIST changes: +ALBU2.5V10 NEB; -ALBU83IN NEB; +LEVO1TAB40; -LEVO750T13; -VITA200015 PO; +VITA200035 PO
== END ==
LOC: M RAD 12:09
PROVIDERS: ATTEND Family Medicine Addiction Medicine
DX: M25.551 Pain in right hip (principal)

== ENCOUNTER 2022-06-13 08:29 | Emergency (ER) | payer OTHER ==
[~2022-06-13] VITALS: Ht 172.7 cm; Wt 60.5 kg
[2022-06-13] MEDS ORDERED: VITA200032 (08:59)
[2022-06-13] MEDS ORDERED: LISI40TA4 (08:59)
[2022-06-13] MEDS ORDERED: ACETAMINOPHEN 325 MG TAB PO ONE (13:20)
[2022-06-13 14:06] VITALS: BP 140/91
== END 2022-06-13 14:30 | disposition home or self-care (01) ==
LOC: M ED 08:29
DX: S50.12XA Contusion of left forearm, initial encounter (principal); S80.02XA Contusion of left knee, initial encounter; S70.02XA Contusion of left hip, initial encounter; S73.102A Unspecified sprain of left hip, initial encounter; S83.92XA Sprain of unspecified site of left knee, initial encounter; M19.90 Unspecified osteoarthritis, unspecified site; M85.80 Other specified disorders of bone density and structure, unspecified site; W18.30XA Fall on same level, unspecified, initial encounter; Y92.410 Unspecified street and highway as the place of occurrence of the external cause; Y93.89 Activity, other specified; I10 Essential (primary) hypertension; E27.1 Primary adrenocortical insufficiency; J44.9 Chronic obstructive pulmonary disease, unspecified; F17.200 Nicotine dependence, unspecified, uncomplicated; Z79.899 Other long term (current) drug therapy; Z88.0 Allergy status to penicillin; Z88.5 Allergy status to narcotic agent

== ENCOUNTER → 2022-10-05 | Outpatient (REF) | payer OTHER ==
[~2022-10-05] MED LIST changes: +LISI40TA4; +VITA200032
[2022-10-05 13:23] LABS: ALBUMIN 4.1 G/DL (3.2-5.2); ALKALINE PHOSPHATASE 84 U/L (46-116); ALT/SGPT < 9 U/L (7.0-40); AST/SGOT 17 U/L (<34); BILIRUBIN,TOTAL 0.7 MG/DL (0.3-1.2); BLOOD UREA NITROGEN 9 MG/DL (9-23); CALCIUM LEVEL 9.5 MG/DL (8.3-10.6); CARBON DIOXIDE LEVEL 30 MMOL/L (20-31); CHLORIDE LEVEL 98 MMOL/L (98-107); CHOLESTEROL LEVEL 208 MG/DL (<200); CHOLESTEROL RISK RATIO 2.25 (<5); GLOMERULAR FILTRATION RATE > 60.0 (>45); GLUCOSE, FASTING 84 MG/DL (74-106); HDL CHOLESTEROL 92.4 MG/DL (>40); LDL CHOLESTEROL 94.8 MG/DL (<100); NON-HDL-C 115.6 MG/DL; POTASSIUM SERUM 4.2 MMOL/L (3.5-5.1); SODIUM LEVEL 133 MMOL/L (136-145); TOTAL PROTEIN 7.1 G/DL (5.7-8.2); TRIGLYCERIDES LEVEL 104 MG/DL (<150)
[2022-10-05 13:25] LABS: THYROID STIMULATING HORMONE 2.208 uIU/ML (0.55-4.78)
[2022-10-05 15:10] LABS: HEMOGLOBIN A1c 5.4 % (4.0-6.0)
== END ==
LOC: M LAB REF 12:15
PROVIDERS: ATTEND Family Medicine Addiction Medicine
DX: R73.03 Prediabetes (principal)

== ENCOUNTER → 2022-12-16 | Outpatient (REF) | payer OTHER ==
[2022-12-16 12:16] LABS: BASO # 0.1 10^3/uL (0.0-0.2); BASO % 0.7 % (0.0-1.0); EOS # 0.2 10^3/uL (0.0-0.5); EOS % 2.3 % (0.0-3.0); HEMATOCRIT 42.7 % (36.0-47.0); HEMOGLOBIN 14.4 g/dl (12.0-15.5); LYMPH # 2.4 10^3/uL (1.5-5.0); LYMPH % 33.4 % (24.0-44.0); MEAN CORPUSCULAR HEMOGLOBIN 30.5 pg (27.0-33.0); MEAN CORPUSCULAR HGB CONC 33.7 g/dl (32.0-36.5); MEAN CORPUSCULAR VOLUME 90.5 fl (80.0-96.0); MONO # 0.8 10^3/uL (0.0-0.8); NEUTROPHILS # 3.8 10^3/uL (1.5-8.5); NEUTROPHILS % 52.5 % (36.0-66.0); PLATELET COUNT, AUTOMATED 262 10^3/uL (150-450); RED BLOOD COUNT 4.72 10^6/uL (4.00-5.40); WHITE BLOOD COUNT 7.3 10^3/uL (4.0-10.0)
== END ==
LOC: M LAB REF 11:37
PROVIDERS: ATTEND Family Medicine Addiction Medicine
DX: D75.1 Secondary polycythemia (principal)

== ENCOUNTER → 2023-02-26 | Outpatient (CLI) | payer OTHER | LOC: M WUC 09:27 | PROVIDERS: ATTEND Nurse Practitioner Family | DX: M79.632 Pain in left forearm (principal); M25.572 Pain in left ankle and joints of left foot ==

== ENCOUNTER 2023-02-27 19:03 | Emergency (ER) | payer OTHER ==
[~2023-02-27 19:03] MED LIST changes: +FLUDROCORTISONE ACETATE 0.1 MG TAB PO SCH
[2023-02-27 19:20] VITALS: TEMP 97.7
[2023-02-27] MEDS ORDERED: HYDROCORTISONE 10 MG TAB PO ONE (19:30)
[2023-02-27 20:05] LABS: BASO % 0.3 % (0.0-1.0); EOS # 0.2 10^3/uL (0.0-0.5); EOS % 2.2 % (0.0-3.0); HEMATOCRIT 37.7 % (36.0-47.0); HEMOGLOBIN 12.6 g/dl (12.0-15.5); LYMPH # 1.7 10^3/uL (1.5-5.0); LYMPH % 24.7 % (24.0-44.0); MEAN CORPUSCULAR HEMOGLOBIN 30.6 pg (27.0-33.0); MEAN CORPUSCULAR HGB CONC 33.4 g/dl (32.0-36.5); MEAN CORPUSCULAR VOLUME 91.5 fl (80.0-96.0); MONO # 0.6 10^3/uL (0.0-0.8); MONO % 8.6 % (2.0-8.0); NEUTROPHILS # 4.3 10^3/uL (1.5-8.5); NEUTROPHILS % 63.9 % (36.0-66.0); PLATELET COUNT, AUTOMATED 247 10^3/uL (150-450); RED BLOOD COUNT 4.12 10^6/uL (4.00-5.40); WHITE BLOOD COUNT 6.8 10^3/uL (4.0-10.0)
[2023-02-27 20:34] LABS: RSV AMPLIFICATION NEGATIVE (NEGATIVE)
[2023-02-27 20:35] LABS: ETHYL ALCOHOL (ETHANOL) 0.048 % (0.000-0.010)
[2023-02-27 20:36] LABS: SALICYLATE LEVEL < 3.0 MG/DL (<30)
[2023-02-27 20:37] LABS: ACETAMINOPHEN LEVEL < 2.0 UG/ML (10.0-20.0); ALBUMIN 3.2 G/DL (3.2-5.2); ALKALINE PHOSPHATASE 62 U/L (46-116); ALT/SGPT 12 U/L (7.0-40); AST/SGOT 21 U/L (<34); BILIRUBIN,DIRECT 0.1 MG/DL (<0.4); BILIRUBIN,TOTAL 0.5 MG/DL (0.3-1.2); BLOOD UREA NITROGEN 9 MG/DL (9-23); CALCIUM LEVEL 7.8 MG/DL (8.3-10.6); CARBON DIOXIDE LEVEL 25 MMOL/L (20-31); CHLORIDE LEVEL 104 MMOL/L (98-107); GLOMERULAR FILTRATION RATE > 60.0 (>45); GLUCOSE, FASTING 92 MG/DL (74-106); POTASSIUM SERUM 3.8 MMOL/L (3.5-5.1); SODIUM LEVEL 137 MMOL/L (136-145); TOTAL PROTEIN 5.6 G/DL (5.7-8.2)
[2023-02-27 20:38] LABS: CPK CREATINE PHOSPHOKINASE 82 U/L (34-145); THYROID STIMULATING HORMONE 1.716 uIU/ML (0.55-4.78)
[2023-02-27 21:46] LABS: AMPHETAMINES LEVEL URINE NEGATIVE (NEGATIVE); BARBITURATES URINE NEGATIVE (NEGATIVE); BENZODIAZEPINES URINE NEGATIVE (NEGATIVE); COCAINE METABOLITE URINE NEGATIVE (NEGATIVE); METHADONE URINE NEGATIVE (NEGATIVE); OPIATES URINE NEGATIVE (NEGATIVE); PHENCYCLIDINE URINE NEGATIVE (NEGATIVE)
[2023-02-27 21:48] LABS: CANNABINOIDS URINE POSITIVE (NEGATIVE)
[2023-02-27 22:30] VITALS: BP 118/72; O2SAT 96
== END 2023-02-27 23:11 | disposition home or self-care (01) ==
LOC: M ED 19:03
DX: F10.129 Alcohol abuse with intoxication, unspecified (principal); F12.129 Cannabis abuse with intoxication, unspecified; I45.10 Unspecified right bundle-branch block; J44.9 Chronic obstructive pulmonary disease, unspecified; I10 Essential (primary) hypertension; F17.200 Nicotine dependence, unspecified, uncomplicated; Z88.0 Allergy status to penicillin; Z88.5 Allergy status to narcotic agent; Z79.811 Long term (current) use of aromatase inhibitors; Z79.899 Other long term (current) drug therapy

== ENCOUNTER 2023-04-19 10:03 | Inpatient (IN) | payer OTHER ==
[~2023-04-19] VITALS: Ht 172.7 cm; Wt 60.2 kg
[~2023-04-19 10:03] MED LIST changes: -FLUD0.1T; -FLUDROCORTISONE ACETATE 0.1 MG TAB PO SCH; -LISI40TA4; +LISI40TA4 PO; -VITA200032; +VITA200032 PO
[2023-04-19] MEDS ORDERED: ISOVUE-370 76% 100ML VIAL As Ordered ONE (10:41)
[2023-04-19 10:50] LABS: BASO % 0.3 % (0.0-1.0); EOS % 0.4 % (0.0-3.0); HEMATOCRIT 44.7 % (36.0-47.0); HEMOGLOBIN 14.9 g/dl (12.0-15.5); LYMPH # 1.7 10^3/uL (1.5-5.0); MEAN CORPUSCULAR HEMOGLOBIN 30.5 pg (27.0-33.0); MEAN CORPUSCULAR HGB CONC 33.3 g/dl (32.0-36.5); MEAN CORPUSCULAR VOLUME 91.4 fl (80.0-96.0); MONO # 0.5 10^3/uL (0.0-0.8); MONO % 4.8 % (2.0-8.0); NEUTROPHILS # 7.3 10^3/uL (1.5-8.5); NEUTROPHILS % 76.3 % (36.0-66.0); PLATELET COUNT, AUTOMATED 298 10^3/uL (150-450); RED BLOOD COUNT 4.89 10^6/uL (4.00-5.40); WHITE BLOOD COUNT 9.6 10^3/uL (4.0-10.0)
[2023-04-19 11:06] LABS: INR 1.01
[2023-04-19 11:07] LABS: PARTIAL THROMBOPLASTIN TIME 25.2 SECONDS (24.8-34.2)
[2023-04-19 11:12] LABS: BLOOD UREA NITROGEN 16 MG/DL (9-23); CALCIUM LEVEL 9.4 MG/DL (8.3-10.6); CARBON DIOXIDE LEVEL 30 MMOL/L (20-31); CHLORIDE LEVEL 101 MMOL/L (98-107); CREATININE FOR GFR 0.74 MG/DL (0.55-1.30); GLOMERULAR FILTRATION RATE > 60.0 (>45); GLUCOSE, FASTING 75 MG/DL (74-106); POTASSIUM SERUM 3.9 MMOL/L (3.5-5.1); SODIUM LEVEL 138 MMOL/L (136-145)
[2023-04-19 11:26] LABS: RSV AMPLIFICATION NEGATIVE (NEGATIVE)
[2023-04-19] MEDS ORDERED: MED REC IN PROGRESS XX SCH (11:50)
[2023-04-19] MEDS ORDERED: LORazepam 1 MG TAB PO PRN (12:10)
[2023-04-19] MEDS ORDERED: ASPIRIN 325 MG TAB PO ONE (12:20)
[2023-04-19] MEDS: FOLIC ACID 1MG TAB PO SCH (12:48)
[2023-04-19] MEDS: THIAMINE 100 MG TAB PO SCH ×2 (12:48→22:15)
[2023-04-19] MEDS: MULTIVITAMINS/MINERALS THERAP 1 TAB PO SCH (12:55)
[2023-04-19] MEDS ORDERED: CLOPIDOGREL 75 MG TAB PO ONE (13:00)
[2023-04-19] MEDS ORDERED: HYDR-4468 PO ×2 (13:20)
[2023-04-19] MEDS ORDERED: ALBU8.5H INH (13:34)
[2023-04-19] MEDS ORDERED: ALBU2.5V10 NEB (13:34)
[2023-04-19] MEDS ORDERED: HOME MED LIST COMPLETE! XX SCH (13:35)
[2023-04-19] MEDS ORDERED: ALBUTEROL SULFATE 2.5MG/0.5ML INH NEB SOLN NEB PRN (13:45)
[2023-04-19 14:24] LABS: CHOLESTEROL LEVEL 228 MG/DL (<200); CHOLESTEROL RISK RATIO 2.19 (<5); FREE T4 1.25 NG/DL (0.89-1.76); HDL CHOLESTEROL 103.8 MG/DL (>40); LDL CHOLESTEROL 105.4 MG/DL (<100); NON-HDL-C 124.2 MG/DL; THYROID STIMULATING HORMONE 0.623 uIU/ML (0.55-4.78); TRIGLYCERIDES LEVEL 94 MG/DL (<150); VITAMIN B12 LEVEL 307 PG/ML (211-911)
[2023-04-19 14:41] VITALS: BP 148/102; TEMP 97.4; O2SAT 98
[2023-04-19 14:47] VITALS: BP 148/67
[2023-04-19] MEDS: NICOTINE 21MG/24HR 1 EA TRANSDERMAL TD SCH (14:54)
[2023-04-19 15:56] VITALS: BP 152/98; TEMP 97.6; O2SAT 99
[2023-04-19] MEDS: ENOXAPARIN 40MG/0.4ML SYRINGE (J1650 PER 10MG) SC SCH (16:10)
[2023-04-19] MEDS: ALBUTEROL 90 MCG/ACT 8GM HFA INHALER INH SCH ×2 (16:41→19:20)
[2023-04-19 20:05] VITALS: BP 109/59; TEMP 96.6; O2SAT 95
[2023-04-19] MEDS: ROSUVASTATIN 10 MG TAB (CRESTOR) PO SCH (22:15)
[2023-04-19] MEDS: HYDROCORTISONE 10 MG TAB PO SCH (22:15)
[2023-04-20] VITALS: BP 140/95; TEMP 96.7; O2SAT 96
[2023-04-20] MEDS: ALBUTEROL 90 MCG/ACT 8GM HFA INHALER INH SCH ×7 (00:07→23:51)
[2023-04-20 04:40] VITALS: BP 141/92; TEMP 97.5; O2SAT 96
[2023-04-20 07:13] LABS: BASO % 0.4 % (0.0-1.0); EOS # 0.1 10^3/uL (0.0-0.5); EOS % 1.7 % (0.0-3.0); HEMATOCRIT 40.4 % (36.0-47.0); HEMOGLOBIN 13.5 g/dl (12.0-15.5); LYMPH # 2.6 10^3/uL (1.5-5.0); LYMPH % 37.4 % (24.0-44.0); MEAN CORPUSCULAR HEMOGLOBIN 30.7 pg (27.0-33.0); MEAN CORPUSCULAR HGB CONC 33.4 g/dl (32.0-36.5); MEAN CORPUSCULAR VOLUME 91.8 fl (80.0-96.0); MONO # 0.6 10^3/uL (0.0-0.8); MONO % 8.7 % (2.0-8.0); NEUTROPHILS # 3.6 10^3/uL (1.5-8.5); NEUTROPHILS % 51.7 % (36.0-66.0); PLATELET COUNT, AUTOMATED 250 10^3/uL (150-450); WHITE BLOOD COUNT 7.1 10^3/uL (4.0-10.0)
[2023-04-20 08:00] VITALS: BP 157/92; TEMP 97.7; O2SAT 98
[2023-04-20 08:36] LABS: ALBUMIN 3.1 G/DL (3.2-5.2); ALKALINE PHOSPHATASE 54 U/L (46-116); ALT/SGPT 9 U/L (7.0-40); AST/SGOT 11 U/L (<34); BILIRUBIN,TOTAL 0.7 MG/DL (0.3-1.2); BLOOD UREA NITROGEN 12 MG/DL (9-23); CALCIUM LEVEL 8.4 MG/DL (8.3-10.6); CARBON DIOXIDE LEVEL 32 MMOL/L (20-31); CHLORIDE LEVEL 102 MMOL/L (98-107); CREATININE FOR GFR 0.72 MG/DL (0.55-1.30); GLOMERULAR FILTRATION RATE > 60.0 (>45); GLUCOSE, FASTING 80 MG/DL (74-106); PHOSPHORUS LEVEL 3.9 MG/DL (2.4-5.1); POTASSIUM SERUM 3.9 MMOL/L (3.5-5.1); SODIUM LEVEL 137 MMOL/L (136-145); TOTAL PROTEIN 5.6 G/DL (5.7-8.2)
[2023-04-20] MEDS ORDERED: ASPIRIN 81MG CHEW TABLET PO SCH (09:00)
[2023-04-20] MEDS ORDERED: CLOPIDOGREL 75 MG TAB PO SCH (09:00)
[2023-04-20] MEDS: NICOTINE 21MG/24HR 1 EA TRANSDERMAL TD SCH (09:00)
[2023-04-20] MEDS: ENOXAPARIN 40MG/0.4ML SYRINGE (J1650 PER 10MG) SC SCH (09:33)
[2023-04-20] MEDS: HYDROCORTISONE 10 MG TAB PO SCH ×2 (09:33→20:22)
[2023-04-20] MEDS: ASPIRIN ENTERIC 325MG TAB PO SCH (09:34)
[2023-04-20] MEDS: FOLIC ACID 1MG TAB PO SCH (09:34)
[2023-04-20] MEDS: MULTIVITAMINS/MINERALS THERAP 1 TAB PO SCH (09:34)
[2023-04-20] MEDS: FLUDROCORTISONE ACETATE 0.1 MG TAB PO SCH (09:34)
[2023-04-20] MEDS: THIAMINE 100 MG TAB PO SCH ×2 (09:34→20:22)
[2023-04-20 12:00] VITALS: BP 152/90; TEMP 97.6; O2SAT 97
[2023-04-20 16:00] VITALS: BP 141/96; TEMP 98.1; O2SAT 95
[2023-04-20 19:42] VITALS: BP 122/61; TEMP 98.3; O2SAT 98
[2023-04-20] MEDS: ROSUVASTATIN 10 MG TAB (CRESTOR) PO SCH (20:22)
[2023-04-21 00:15] VITALS: BP 129/79; TEMP 97.7; O2SAT 98
[2023-04-21] MEDS: ALBUTEROL 90 MCG/ACT 8GM HFA INHALER INH SCH ×2 (04:00→07:41)
[2023-04-21 04:28] VITALS: BP 160/98; TEMP 97.6; O2SAT 99
[2023-04-21 07:52] VITALS: BP 155/87; TEMP 97.3; O2SAT 100
[2023-04-21] MEDS ORDERED: ATOR80TA59 PO (08:42)
[2023-04-21] MEDS ORDERED: ASPI32ECTA PO (08:42)
[2023-04-21] MEDS ORDERED: PROT1TAB2 PO (08:42)
[2023-04-21] MEDS: NICOTINE 21MG/24HR 1 EA TRANSDERMAL TD SCH (08:46)
[2023-04-21] MEDS: ASPIRIN ENTERIC 325MG TAB PO SCH (08:51)
[2023-04-21] MEDS: HYDROCORTISONE 10 MG TAB PO SCH (08:51)
[2023-04-21] MEDS: FLUDROCORTISONE ACETATE 0.1 MG TAB PO SCH (08:51)
[2023-04-21] MEDS: THIAMINE 100 MG TAB PO SCH (08:51)
[2023-04-21] MEDS: MULTIVITAMINS/MINERALS THERAP 1 TAB PO SCH (08:51)
[2023-04-21] MEDS: FOLIC ACID 1MG TAB PO SCH (08:51)
[2023-04-21] MEDS: ENOXAPARIN 40MG/0.4ML SYRINGE (J1650 PER 10MG) SC SCH (08:52)
== END 2023-04-21 11:06 | disposition home health service (06) | DRG 45 ==
LOC: M ED 10:03 → M ED INP 12:09 → ENRESERV 13:30 → M PCU 14:41
PROVIDERS: ADMIT Internal Medicine; ATTEND Internal Medicine
PROC: B246ZZZ Ultrasonography of Right and Left Heart (ICD-10-PCS; principal; 2023-04-20)
DX: I63.9 Cerebral infarction, unspecified (principal); R47.01 Aphasia; I10 Essential (primary) hypertension; R47.81 Slurred speech; F10.20 Alcohol dependence, uncomplicated; R47.02 Dysphasia; R26.89 Other abnormalities of gait and mobility; R29.810 Facial weakness; D51.0 Vitamin B12 deficiency anemia due to intrinsic factor deficiency; F17.210 Nicotine dependence, cigarettes, uncomplicated; Z79.899 Other long term (current) drug therapy; Z88.0 Allergy status to penicillin; Z88.5 Allergy status to narcotic agent; Z20.822 Contact with and (suspected) exposure to COVID-19; Z71.6 Tobacco abuse counseling

== ENCOUNTER 2023-05-19 22:55 | Emergency (ER) | payer OTHER ==
[~2023-05-19] VITALS: Ht 167.6 cm; Wt 70.0 kg
[~2023-05-19 22:55] MED LIST changes: +ALBU8.5H INH; +ASPI32ECTA PO; +ATOR80TA59 PO; +HYDR-4468 PO; +PROT1TAB2 PO
[2023-05-20 00:42] LABS: BASO % 0.3 % (0.0-1.0); EOS # 0.1 10^3/uL (0.0-0.5); EOS % 0.8 % (0.0-3.0); HEMATOCRIT 39.4 % (36.0-47.0); HEMOGLOBIN 13.2 g/dl (12.0-15.5); LYMPH # 1.4 10^3/uL (1.5-5.0); LYMPH % 17.9 % (24.0-44.0); MEAN CORPUSCULAR HEMOGLOBIN 30.6 pg (27.0-33.0); MEAN CORPUSCULAR HGB CONC 33.5 g/dl (32.0-36.5); MEAN CORPUSCULAR VOLUME 91.2 fl (80.0-96.0); MONO # 0.4 10^3/uL (0.0-0.8); MONO % 5.6 % (2.0-8.0); NEUTROPHILS # 5.8 10^3/uL (1.5-8.5); NEUTROPHILS % 75.1 % (36.0-66.0); PLATELET COUNT, AUTOMATED 234 10^3/uL (150-450); RED BLOOD COUNT 4.32 10^6/uL (4.00-5.40); WHITE BLOOD COUNT 7.7 10^3/uL (4.0-10.0)
[2023-05-20 00:44] LABS: ALBUMIN 3.4 G/DL (3.2-5.2); ALKALINE PHOSPHATASE 75 U/L (46-116); ALT/SGPT 23 U/L (7.0-40); AST/SGOT 14 U/L (<34); BILIRUBIN,DIRECT 0.2 MG/DL (<0.4); BILIRUBIN,TOTAL 0.4 MG/DL (0.3-1.2); TOTAL PROTEIN 6.1 G/DL (5.7-8.2)
[2023-05-20 02:19] LABS: ETHYL ALCOHOL (ETHANOL) 0.004 % (0.000-0.010)
[2023-05-20 02:20] LABS: BLOOD UREA NITROGEN 15 MG/DL (9-23); CALCIUM LEVEL 9.1 MG/DL (8.3-10.6); CARBON DIOXIDE LEVEL 28 MMOL/L (20-31); CHLORIDE LEVEL 106 MMOL/L (98-107); CREATININE FOR GFR 0.62 MG/DL (0.55-1.30); GLOMERULAR FILTRATION RATE > 60.0 (>45); GLUCOSE, FASTING 113 MG/DL (74-106); POTASSIUM SERUM 3.7 MMOL/L (3.5-5.1); SODIUM LEVEL 141 MMOL/L (136-145)
[2023-05-20 03:23] LABS: RSV AMPLIFICATION NEGATIVE (NEGATIVE)
[2023-05-20 05:00] VITALS: TEMP 98.4
[2023-05-20 06:00] VITALS: BP 148/88; O2SAT 96
== END 2023-05-20 06:16 | disposition home or self-care (01) ==
LOC: M ED 22:55 → EDBD 22:55 → M ED 05-20 06:16
DX: R51.9 Headache, unspecified (principal); Z86.73 Personal history of transient ischemic attack (TIA), and cerebral infarction without residual deficits; E27.2 Addisonian crisis; F17.200 Nicotine dependence, unspecified, uncomplicated; Z79.899 Other long term (current) drug therapy; Z88.0 Allergy status to penicillin; Z88.5 Allergy status to narcotic agent

== ENCOUNTER 2023-09-09 10:16 | Day surgery (SDC) | payer OTHER ==
[~2023-09-09] VITALS: Ht 174 cm; Wt 67.9 kg
[~2023-09-09 10:16] MED LIST changes: +ASPI-1 PO; +BSS IRRIG/VANCO(10MG)/TOBRA(5MG)/EPINEPH(1:1000-0.5CC)500ML BAG-ORONLY As Ordered ONE; +MIDAZOLAM INJ 2MG/2ML VIAL As Ordered ONE; +PANT40TA29 PO; +PHENYLEPHRINE 10% OPHTH SOL 5ML OD PRN; +fentaNYL 100 MCG/2 ML INJECTION As Ordered ONE
[2023-09-09] MEDS: LIDOCAINE 3.5 % 1ML OPHTH TOPICAL GEL OU ONE (10:40)
[2023-09-09] MEDS: OFLOXACIN 0.3 % (OCUFLOX) OPTH SOL 5ML OD ONE (10:40)
[2023-09-09] MEDS: ATROPINE SULFATE 1% OPHTH SOLN 2ML BTL OD SCH (10:53)
[2023-09-09] MEDS: TROPICAMIDE 1% OPHTH SOLN 15ML OD SCH (10:54)
[2023-09-09] MEDS: PHENYLEPHRINE 2.5% OPHTH SOL 2ML OD SCH (10:54)
[2023-09-09] MEDS: LIDOCAINE 1% SDV 5ML VIAL As Ordered ONE (11:40)
[2023-09-09] MEDS: CEFUROXIME 1MG/0.1ML INTRACAMERAL INJ As Ordered ONE (11:41)
[2023-09-09] MEDS: MOXIFLOXACIN 0.6MG/0.4ML INTRAOCULAR SYRINGE As Ordered ONE (11:41)
[2023-09-09 11:50] VITALS: BP 140/81; TEMP 97.2; O2SAT 95
== END 2023-09-09 12:05 | disposition home or self-care (01) ==
LOC: M SDC 10:16
PROVIDERS: ATTEND Ophthalmology
DX: H25.11 Age-related nuclear cataract, right eye (principal); Z86.73 Personal history of transient ischemic attack (TIA), and cerebral infarction without residual deficits; Z88.0 Allergy status to penicillin; Z88.5 Allergy status to narcotic agent; F17.210 Nicotine dependence, cigarettes, uncomplicated; Z79.899 Other long term (current) drug therapy
CPT/HCPCS: 66984; J2250; J3010; V2632

== ENCOUNTER 2023-09-13 08:18 | Inpatient (IN) | payer OTHER ==
[~2023-09-13] VITALS: Ht 172.7 cm; Wt 67.2 kg
[~2023-09-13 08:18] MED LIST changes: -BSS IRRIG/VANCO(10MG)/TOBRA(5MG)/EPINEPH(1:1000-0.5CC)500ML BAG-ORONLY As Ordered ONE; -MIDAZOLAM INJ 2MG/2ML VIAL As Ordered ONE; -PHENYLEPHRINE 10% OPHTH SOL 5ML OD PRN; -fentaNYL 100 MCG/2 ML INJECTION As Ordered ONE
[2023-09-13] MEDS ORDERED: ISOVUE-370 76% 100ML VIAL As Ordered ONE (08:36)
[2023-09-13] MEDS: ATORVASTATIN 20 MG TAB PO SCH (09:00)
[2023-09-13] MEDS: PANTOPRAZOLE 40MG TAB (PROTONIX) PO SCH (09:00)
[2023-09-13 09:14] LABS: BASO % 0.3 % (0.0-1.0); EOS # 0.1 10^3/uL (0.0-0.5); HEMATOCRIT 42.6 % (36.0-47.0); HEMOGLOBIN 14.3 g/dl (12.0-15.5); LYMPH % 32.2 % (24.0-44.0); MEAN CORPUSCULAR HEMOGLOBIN 30.4 pg (27.0-33.0); MEAN CORPUSCULAR HGB CONC 33.6 g/dl (32.0-36.5); MEAN CORPUSCULAR VOLUME 90.6 fl (80.0-96.0); MONO # 0.9 10^3/uL (0.0-0.8); MONO % 7.6 % (2.0-8.0); NEUTROPHILS # 7.3 10^3/uL (1.5-8.5); NEUTROPHILS % 58.6 % (36.0-66.0); PLATELET COUNT, AUTOMATED 307 10^3/uL (150-450); WHITE BLOOD COUNT 12.4 10^3/uL (4.0-10.0)
[2023-09-13 09:24] LABS: INR 0.87; PARTIAL THROMBOPLASTIN TIME 22.9 SECONDS (24.8-34.2); PROTHROMBIN TIME 11.6 SECONDS (12.5-14.5)
[2023-09-13 09:26] LABS: ETHYL ALCOHOL (ETHANOL) < 0.003 % (0.000-0.010)
[2023-09-13 09:28] LABS: BLOOD UREA NITROGEN 16 MG/DL (9-23); CALCIUM LEVEL 9.5 MG/DL (8.3-10.6); CARBON DIOXIDE LEVEL 32 MMOL/L (20-31); CHLORIDE LEVEL 105 MMOL/L (98-107); CPK CREATINE PHOSPHOKINASE 71 U/L (34-145); CREATININE FOR GFR 0.79 MG/DL (0.55-1.30); GLOMERULAR FILTRATION RATE > 60.0 (>45); GLUCOSE, FASTING 92 MG/DL (74-106); POTASSIUM SERUM 4.1 MMOL/L (3.5-5.1); SODIUM LEVEL 141 MMOL/L (136-145)
[2023-09-13] MEDS ORDERED: MED REC IN PROGRESS XX SCH (10:10)
[2023-09-13 10:15] LABS: AMPHETAMINES LEVEL URINE NEGATIVE (NEGATIVE); BARBITURATES URINE NEGATIVE (NEGATIVE); BENZODIAZEPINES URINE NEGATIVE (NEGATIVE); COCAINE METABOLITE URINE NEGATIVE (NEGATIVE); METHADONE URINE NEGATIVE (NEGATIVE); OPIATES URINE NEGATIVE (NEGATIVE); PHENCYCLIDINE URINE NEGATIVE (NEGATIVE)
[2023-09-13 10:16] LABS: CANNABINOIDS URINE NEGATIVE (NEGATIVE)
[2023-09-13] MEDS ORDERED: AMLO1TAB24 PO (10:34)
[2023-09-13] MEDS ORDERED: PREDOPD OD (10:34)
[2023-09-13] MEDS ORDERED: ATOR80TA59 PO (10:34)
[2023-09-13] MEDS ORDERED: KETO0.5S4 OD (10:34)
[2023-09-13] MEDS ORDERED: CIPR0.3S37 OD (10:34)
[2023-09-13] MEDS ORDERED: HOME MED LIST COMPLETE! XX SCH (10:35)
[2023-09-13] MEDS ORDERED: ONDANSETRON 4MG 2ML VIAL IV PRN (10:45)
[2023-09-13] MEDS ORDERED: ALBUTEROL SULFATE 2.5MG/0.5ML INH NEB SOLN NEB PRN (11:45)
[2023-09-13] MEDS: ENOXAPARIN 40MG/0.4ML SYRINGE (J1650 PER 10MG) SC ONE (12:00)
[2023-09-13] MEDS: ALBUTEROL 90 MCG/ACT 8GM HFA INHALER INH SCH (12:00)
[2023-09-13] MEDS: CLOPIDOGREL 75 MG TAB PO ONE (12:00)
[2023-09-13] MEDS ORDERED: CIPROFLOXACIN 0.3% OPHTH SOLN 2.5ML OD SCH (13:00)
[2023-09-13] MEDS ORDERED: KETOROLAC 0.5% OPHTH SOLN OD SCH (13:00)
[2023-09-13] MEDS ORDERED: prednisoLONE ACET 1% OPHTH SUSP 5ML OD SCH (13:00)
[2023-09-13] MEDS ORDERED: D5W/0.45% SODIUM CHLORIDE 1,000 ML IV SCH (13:30)
[2023-09-13] MEDS ORDERED: GLUCAGON INJ 1MG VIAL SC PRN (13:30)
[2023-09-13] MEDS ORDERED: GLUCOSE 4GM CHEW TABLET PO PRN (13:30)
[2023-09-13] MEDS ORDERED: DEXTROSE 50% 50ML SYRINGE IV PRN (13:30)
[2023-09-13 14:39] VITALS: BP 136/89; TEMP 97.6; O2SAT 96
[2023-09-13] MEDS: NS 1,000 ML IV ONE ×2 (14:53→16:12)
[2023-09-13] MEDS: guaiFENesin ER TABLET 600 MG TAB PO SCH (15:03)
[2023-09-13] MEDS: CETIRIZINE (ZyrTEC) 10 MG TAB PO SCH (15:03)
[2023-09-13] MEDS: NICOTINE 14 MG/24 HR TRANSDERMAL TD SCH (15:03)
[2023-09-13 16:00] VITALS: BP_SYST 152; BP_SYST 154; BP_DIAS 88; BP_DIAS 97; TEMP 97.4; O2SAT 96
[2023-09-13 17:35] VITALS: BP 146/86
[2023-09-13] MEDS: NS 1,000 ML IV SCH ×2 (17:51→21:24)
[2023-09-13] MEDS: SODIUM CHLORIDE 1 GM TAB PO SCH (18:42)
[2023-09-13 18:55] VITALS: BP 155/91
[2023-09-13 19:32] VITALS: BP 148/97; TEMP 97.2; O2SAT 95
[2023-09-13] MEDS: HYDROCORTISONE 10 MG TAB PO SCH (21:25)
[2023-09-13 22:59] VITALS: BP 140/86; TEMP 97.6; O2SAT 94
[2023-09-14 03:43] VITALS: BP 152/94; TEMP 97.1; O2SAT 97
[2023-09-14] MEDS: ACETAMINOPHEN TAB 650MG DOSE (2X325MG) PO PRN (04:36)
[2023-09-14 05:40] LABS: HEMATOCRIT 38.3 % (36.0-47.0); HEMOGLOBIN 12.7 g/dl (12.0-15.5); MEAN CORPUSCULAR HEMOGLOBIN 30.1 pg (27.0-33.0); MEAN CORPUSCULAR HGB CONC 33.2 g/dl (32.0-36.5); MEAN CORPUSCULAR VOLUME 90.8 fl (80.0-96.0); PLATELET COUNT, AUTOMATED 241 10^3/uL (150-450); RED BLOOD COUNT 4.22 10^6/uL (4.00-5.40); WHITE BLOOD COUNT 8.8 10^3/uL (4.0-10.0)
[2023-09-14 06:12] LABS: BLOOD UREA NITROGEN 10 MG/DL (9-23); CALCIUM LEVEL 8.4 MG/DL (8.3-10.6); CARBON DIOXIDE LEVEL 28 MMOL/L (20-31); CHLORIDE LEVEL 108 MMOL/L (98-107); CHOLESTEROL LEVEL 154 MG/DL (<200); CHOLESTEROL RISK RATIO 2.11 (<5); CREATININE FOR GFR 0.63 MG/DL (0.55-1.30); GLOMERULAR FILTRATION RATE > 60.0 (>45); GLUCOSE, FASTING 89 MG/DL (74-106); HDL CHOLESTEROL 72.9 MG/DL (>40); LDL CHOLESTEROL 61.3 MG/DL (<100); NON-HDL-C 81.1 MG/DL; SODIUM LEVEL 142 MMOL/L (136-145); TRIGLYCERIDES LEVEL 99 MG/DL (<150)
[2023-09-14 07:44] VITALS: BP 146/97; TEMP 97.8; O2SAT 96
[2023-09-14] MEDS: HYDROCORTISONE 10 MG TAB PO SCH (09:10)
[2023-09-14] MEDS: ASPIRIN 81MG CHEW TABLET PO SCH (09:10)
[2023-09-14] MEDS: ENOXAPARIN 40MG/0.4ML SYRINGE (J1650 PER 10MG) SC SCH (09:10)
[2023-09-14] MEDS: CLOPIDOGREL 75 MG TAB PO SCH (09:11)
[2023-09-14 11:25] VITALS: BP 140/87; TEMP 98.7; O2SAT 96
[2023-09-14] MEDS: NS 1,000 ML IV SCH (12:10)
[2023-09-14 15:34] VITALS: BP 122/76; TEMP 98.7; O2SAT 94
[2023-09-14] MEDS: NS 1,000 ML IV ONE (16:50)
[2023-09-14 18:56] VITALS: BP 138/79; TEMP 98.4; O2SAT 96
[2023-09-14 23:00] VITALS: BP 157/98; TEMP 98.6; O2SAT 94
[2023-09-15 03:00] VITALS: BP 166/97; TEMP 97.7; O2SAT 95
[2023-09-15 05:48] LABS: HEMOGLOBIN 13.1 g/dl (12.0-15.5); MEAN CORPUSCULAR HEMOGLOBIN 30.3 pg (27.0-33.0); MEAN CORPUSCULAR HGB CONC 32.8 g/dl (32.0-36.5); MEAN CORPUSCULAR VOLUME 92.4 fl (80.0-96.0); PLATELET COUNT, AUTOMATED 256 10^3/uL (150-450); RED BLOOD COUNT 4.33 10^6/uL (4.00-5.40); WHITE BLOOD COUNT 7.9 10^3/uL (4.0-10.0)
[2023-09-15 06:12] LABS: BLOOD UREA NITROGEN 11 MG/DL (9-23); CALCIUM LEVEL 8.9 MG/DL (8.3-10.6); CARBON DIOXIDE LEVEL 30 MMOL/L (20-31); CHLORIDE LEVEL 108 MMOL/L (98-107); CREATININE FOR GFR 0.67 MG/DL (0.55-1.30); GLOMERULAR FILTRATION RATE > 60.0 (>45); GLUCOSE, FASTING 104 MG/DL (74-106); POTASSIUM SERUM 3.6 MMOL/L (3.5-5.1); SODIUM LEVEL 140 MMOL/L (136-145)
[2023-09-15 07:18] VITALS: BP 167/105; TEMP 98; O2SAT 98
[2023-09-15 08:13] VITALS: BP 158/93
[2023-09-15] MEDS: amLODIPine 5 MG TAB PO SCH (08:47)
[2023-09-15] MEDS ORDERED: PROHANCE 279.3MG/ML 15ML VIAL As Ordered ONE (12:50)
[2023-09-15 13:48] VITALS: BP 137/81; TEMP 98.4; O2SAT 99
[2023-09-15 16:00] VITALS: BP 143/94; TEMP 97.8; O2SAT 97
[2023-09-15 19:38] VITALS: BP_SYST 149; BP_SYST 49; BP_DIAS 96; TEMP 97.2; O2SAT 97
[2023-09-16 04:14] VITALS: BP 168/98; TEMP 97.3; O2SAT 96
[2023-09-16 06:08] VITALS: BP 155/95
[2023-09-16 06:16] LABS: HEMATOCRIT 40.5 % (36.0-47.0); HEMOGLOBIN 13.5 g/dl (12.0-15.5); MEAN CORPUSCULAR HEMOGLOBIN 30.1 pg (27.0-33.0); MEAN CORPUSCULAR HGB CONC 33.3 g/dl (32.0-36.5); MEAN CORPUSCULAR VOLUME 90.2 fl (80.0-96.0); PLATELET COUNT, AUTOMATED 242 10^3/uL (150-450); RED BLOOD COUNT 4.49 10^6/uL (4.00-5.40); WHITE BLOOD COUNT 7.2 10^3/uL (4.0-10.0)
[2023-09-16 06:32] LABS: BLOOD UREA NITROGEN 10 MG/DL (9-23); CALCIUM LEVEL 8.9 MG/DL (8.3-10.6); CARBON DIOXIDE LEVEL 29 MMOL/L (20-31); CHLORIDE LEVEL 107 MMOL/L (98-107); CREATININE FOR GFR 0.59 MG/DL (0.55-1.30); GLOMERULAR FILTRATION RATE > 60.0 (>45); GLUCOSE, FASTING 89 MG/DL (74-106); SODIUM LEVEL 142 MMOL/L (136-145)
[2023-09-16 07:51] VITALS: BP 158/98; TEMP 96.4; O2SAT 94
[2023-09-16 11:47] VITALS: BP 134/76; TEMP 97; O2SAT 96
[2023-09-16 18:33] VITALS: BP 144/78; TEMP 97.3; O2SAT 94
[2023-09-17 00:31] VITALS: BP 127/80; TEMP 97.3; O2SAT 94
[2023-09-17 04:35] VITALS: BP 116/74; TEMP 97.5; O2SAT 93
[2023-09-17 06:06] LABS: HEMATOCRIT 40.5 % (36.0-47.0); MEAN CORPUSCULAR HEMOGLOBIN 29.6 pg (27.0-33.0); MEAN CORPUSCULAR HGB CONC 32.1 g/dl (32.0-36.5); MEAN CORPUSCULAR VOLUME 92.3 fl (80.0-96.0); PLATELET COUNT, AUTOMATED 248 10^3/uL (150-450); RED BLOOD COUNT 4.39 10^6/uL (4.00-5.40); WHITE BLOOD COUNT 7.2 10^3/uL (4.0-10.0)
[2023-09-17 06:31] LABS: BLOOD UREA NITROGEN 27 MG/DL (9-23); CALCIUM LEVEL 9.3 MG/DL (8.3-10.6); CARBON DIOXIDE LEVEL 29 MMOL/L (20-31); CHLORIDE LEVEL 108 MMOL/L (98-107); GLOMERULAR FILTRATION RATE > 60.0 (>45); GLUCOSE, FASTING 94 MG/DL (74-106); POTASSIUM SERUM 3.9 MMOL/L (3.5-5.1); SODIUM LEVEL 143 MMOL/L (136-145)
[2023-09-17 07:59] VITALS: BP 128/90; TEMP 97.3; O2SAT 96
[2023-09-17 08:41] VITALS: BP 128/90
[2023-09-17] MEDS ORDERED: ASPI81CH8 PO (11:03)
[2023-09-17] MEDS ORDERED: CLOP75TA2 PO (11:03)
[2023-09-17] MEDS ORDERED: ATOR80TA59 PO (11:03)
== END 2023-09-17 14:24 | disposition home health service (06) | DRG 45 ==
LOC: M ED 09:54 → M ED INP 10:42 → M PCU 14:21
PROVIDERS: ADMIT General Practice; ATTEND General Practice
PROC: B246ZZZ Ultrasonography of Right and Left Heart (ICD-10-PCS; principal; 2023-09-17)
DX: I63.9 Cerebral infarction, unspecified (principal); I69.351 Hemiplegia and hemiparesis following cerebral infarction affecting right dominant side; I10 Essential (primary) hypertension; R26.89 Other abnormalities of gait and mobility; D51.0 Vitamin B12 deficiency anemia due to intrinsic factor deficiency; R47.1 Dysarthria and anarthria; M54.9 Dorsalgia, unspecified; E27.1 Primary adrenocortical insufficiency; G89.29 Other chronic pain; M48.02 Spinal stenosis, cervical region; J44.9 Chronic obstructive pulmonary disease, unspecified; F17.210 Nicotine dependence, cigarettes, uncomplicated; Z79.82 Long term (current) use of aspirin; Z79.52 Long term (current) use of systemic steroids; Z79.899 Other long term (current) drug therapy; Z88.0 Allergy status to penicillin; Z88.5 Allergy status to narcotic agent; I69.391 Dysphagia following cerebral infarction; I69.320 Aphasia following cerebral infarction

== ENCOUNTER 2023-11-25 08:57 | Day surgery (SDC) | payer OTHER ==
[~2023-11-25] VITALS: Ht 172.7 cm; Wt 67.6 kg
[~2023-11-25 08:57] MED LIST changes: +AMLO1TAB24 PO; +ASPI81CH8 PO; +CIPR0.3S37; +CLOP75TA2 PO; +KETO0.5S4; +PHENYLEPHRINE 10% OPHTH SOL 5ML OS PRN; +PREDOPD
[2023-11-25] MEDS: OFLOXACIN 0.3 % (OCUFLOX) OPTH SOL 5ML OS ONE (09:10)
[2023-11-25] MEDS ORDERED: fentaNYL 100 MCG/2 ML INJECTION As Ordered ONE (09:12)
[2023-11-25] MEDS ORDERED: MIDAZOLAM INJ 2MG/2ML VIAL As Ordered ONE (09:12)
[2023-11-25] MEDS: LIDOCAINE 3.5 % 1ML OPHTH TOPICAL GEL OU ONE (09:18)
[2023-11-25] MEDS: PHENYLEPHRINE 2.5% OPHTH SOL 2ML OS SCH (09:18)
[2023-11-25] MEDS: ATROPINE SULFATE 1% OPHTH SOLN 2ML BTL OS SCH (09:18)
[2023-11-25] MEDS: TROPICAMIDE 1% OPHTH SOLN 15ML OS SCH (09:18)
[2023-11-25] MEDS: BSS IRRIG/VANCO(10MG)/TOBRA(5MG)/EPINEPH(1:1000-0.5CC)500ML BAG-ORONLY As Ordered ONE (10:20)
[2023-11-25] MEDS: LIDOCAINE 1% SDV 5ML VIAL As Ordered ONE (10:20)
[2023-11-25] MEDS: CEFUROXIME 1MG/0.1ML INTRACAMERAL INJ As Ordered ONE (10:21)
[2023-11-25 10:33] VITALS: BP 112/74; TEMP 98; O2SAT 97
== END 2023-11-25 10:51 | disposition home or self-care (01) ==
LOC: M SDC 08:57
PROVIDERS: ATTEND Ophthalmology
DX: H25.12 Age-related nuclear cataract, left eye (principal); I69.328 Other speech and language deficits following cerebral infarction; Z88.0 Allergy status to penicillin; Z88.5 Allergy status to narcotic agent; Z79.899 Other long term (current) drug therapy; Z79.01 Long term (current) use of anticoagulants; F17.210 Nicotine dependence, cigarettes, uncomplicated; Z98.41 Cataract extraction status, right eye
CPT/HCPCS: 66984; J0697; J2250; J3010; V2632

== ENCOUNTER 2024-08-15 16:05 | Emergency (ER) | payer MEDICARE, OTHER ==
[~2024-08-15 16:05] MED LIST changes: -LEVO750T14 PO; +LEVO75TAB PO; -PHENYLEPHRINE 10% OPHTH SOL 5ML OS PRN
[2024-08-15 16:28] LABS: BASO % 0.3 % (0.0-1.0); EOS # 0.1 10^3/uL (0.0-0.5); EOS % 1.3 % (0.0-3.0); HEMATOCRIT 46.3 % (36.0-47.0); HEMOGLOBIN 15.5 g/dl (12.0-15.5); LYMPH # 3.1 10^3/uL (1.5-5.0); LYMPH % 33.6 % (24.0-44.0); MEAN CORPUSCULAR HEMOGLOBIN 29.6 pg (27.0-33.0); MEAN CORPUSCULAR HGB CONC 33.5 g/dl (32.0-36.5); MEAN CORPUSCULAR VOLUME 88.5 fl (80.0-96.0); MONO # 0.6 10^3/uL (0.0-0.8); MONO % 6.8 % (2.0-8.0); NEUTROPHILS # 5.4 10^3/uL (1.5-8.5); NEUTROPHILS % 57.9 % (36.0-66.0); PLATELET COUNT, AUTOMATED 321 10^3/uL (150-450); RED BLOOD COUNT 5.23 10^6/uL (4.00-5.40); WHITE BLOOD COUNT 9.3 10^3/uL (4.0-10.0)
[2024-08-15 16:40] LABS: INR 0.84; PARTIAL THROMBOPLASTIN TIME 25.8 SECONDS (24.8-34.2); PROTHROMBIN TIME 11.8 SECONDS (12.5-14.5)
[2024-08-15 16:51] LABS: BLOOD UREA NITROGEN 11 MG/DL (9-23); CALCIUM LEVEL 9.9 MG/DL (8.3-10.6); CARBON DIOXIDE LEVEL 30 MMOL/L (20-31); CHLORIDE LEVEL 104 MMOL/L (98-107); CREATININE FOR GFR 0.79 MG/DL (0.55-1.30); GLOMERULAR FILTRATION RATE > 60.0 (>45); GLUCOSE, FASTING 79 MG/DL (74-106); POTASSIUM SERUM 4.2 MMOL/L (3.5-5.1); SODIUM LEVEL 141 MMOL/L (136-145)
[2024-08-15] MEDS ORDERED: ISOVUE-370 76% 100ML VIAL As Ordered ONE (16:53)
[2024-08-15] MEDS: HYDROCORTISONE 10 MG TAB PO ONE (17:04)
[2024-08-15] MEDS: METOCLOPRAMIDE INJ 10MG/2ML VIAL IV ONE (17:11)
[2024-08-15] MEDS: NS (Normal Saline) 0.9% 1,000 ML IV SCH (17:11)
[2024-08-15 17:13] LABS: ERYTHROCYTE SEDIMENTATION RATE 6 mm/hr (0-30)
[2024-08-15] MEDS: KETOROLAC 30 MG/ML 1ML VIAL IV ONE (19:13)
[2024-08-15 21:31] VITALS: BP 112/68; TEMP 97.1; O2SAT 95
== END 2024-08-15 21:34 | disposition home or self-care (01) ==
LOC: EDBD 16:05 → M ED 16:05
DX: R51.9 Headache, unspecified (principal); I10 Essential (primary) hypertension; E27.1 Primary adrenocortical insufficiency; J44.9 Chronic obstructive pulmonary disease, unspecified; F17.200 Nicotine dependence, unspecified, uncomplicated; Z88.0 Allergy status to penicillin; Z88.5 Allergy status to narcotic agent; Z79.82 Long term (current) use of aspirin; Z79.899 Other long term (current) drug therapy
CPT/HCPCS: 70450; 70496; 80047; 80048; 85025; 85610; 85652; 85730; 93041; 94760; 96374; 96375; 99285; J1885; J2765; Q9967

== ENCOUNTER 2024-12-13 09:30 | Emergency (ER) | payer MEDICARE ==
[~2024-12-13] VITALS: Ht 172.7 cm; Wt 74.1 kg
[~2024-12-13 09:30] MED LIST changes: +LISI40TA10 PO; -LISI40TA4 PO
[2024-12-13 09:38] VITALS: TEMP 98
[2024-12-13] MEDS ORDERED: TRIA1CR80 TOP (11:16)
[2024-12-13 11:22] VITALS: BP 110/73; O2SAT 97
== END 2024-12-13 11:23 | disposition home or self-care (01) ==
LOC: M ED 09:30
DX: L30.9 Dermatitis, unspecified (principal); I10 Essential (primary) hypertension; Z88.0 Allergy status to penicillin; Z88.5 Allergy status to narcotic agent